=== PATIENT | female | born 1945 | race Caucasian/White ===

== ENCOUNTER → 2019-02-10 | Outpatient (CLI) | payer MEDICARE, BC ==
[2019-02-10 12:05] LABS: ABSOLUTE EOSINOPHILS 0.1 thou/uL (0.0-0.7); ABSOLUTE LYMPHOCYTES 1.5 thou/uL (0.8-5.3); ABSOLUTE MONOCYTES 0.8 thou/uL (0.0-1.2); ABSOLUTE NEUTROPHILS 3.1 thou/uL (1.6-8.1); BASOPHILS 0.6 %; EOSINOPHILS 1.3 %; HEMATOCRIT 28.6 % (37.0-47.0); HEMOGLOBIN 9.3 gm/dL (12.0-15.0); LYMPHOCYTES 26.9 %; MCH 29.2 pg (26.0-34.0); MCHC 32.5 g/dL (28.0-37.0); MCV 89.8 fL (80.0-100.0); MPV 7.7 fl. (7.2-11.1); NUCLEATED RBCS 0 /100WBC; PLATELET COUNT* 182 thou/uL (150-400); POLYS 56.2 %; RBC 3.18 mil/uL (4.20-5.00); RDW-CV 20.3 % (10.5-14.5); WBC 5.5 thou/uL (4.0-11.0)
[2019-02-10 12:19] LABS: ALBUMIN 2.4 g/dL (3.4-5.0); CALCIUM 8.3 mg/dL (8.5-10.1); CREATININE 0.7 mg/dL (0.6-1.3); POTASSIUM 3.4 mmol/L (3.5-5.1); TOTAL BILIRUBIN 0.2 mg/dL (<0.1-1.0); TOTAL PROTEIN 6.8 g/dL (6.4-8.2)
== END ==
LOC: M.LAB 10:12
PROVIDERS: Specialist
DX: K50.80 Crohn's disease of both small and large intestine without complications (principal)

== ENCOUNTER → 2019-02-10 | Outpatient (CLI) | payer MEDICARE, BC | LOC: M.WC 10:00 | DX: L59.8 Other specified disorders of the skin and subcutaneous tissue related to radiation (principal); E11.622 Type 2 diabetes mellitus with other skin ulcer; L98.491 Non-pressure chronic ulcer of skin of other sites limited to breakdown of skin; N76.6 Ulceration of vulva; C51.9 Malignant neoplasm of vulva, unspecified; I89.0 Lymphedema, not elsewhere classified; E78.00 Pure hypercholesterolemia, unspecified; K50.90 Crohn's disease, unspecified, without complications; M06.9 Rheumatoid arthritis, unspecified; F32.9 Major depressive disorder, single episode, unspecified; F41.9 Anxiety disorder, unspecified; Z90.710 Acquired absence of both cervix and uterus; Y84.2 Radiological procedure and radiotherapy as the cause of abnormal reaction of the patient, or of later complication, without mention of misadventure at the time of the procedure ==

== ENCOUNTER → 2019-02-17 | Outpatient (CLI) | payer MEDICARE, BC | LOC: M.WC 04:48 | DX: E11.622 Type 2 diabetes mellitus with other skin ulcer (principal); L98.491 Non-pressure chronic ulcer of skin of other sites limited to breakdown of skin; L59.8 Other specified disorders of the skin and subcutaneous tissue related to radiation; C51.9 Malignant neoplasm of vulva, unspecified; N76.6 Ulceration of vulva; I89.0 Lymphedema, not elsewhere classified; K50.90 Crohn's disease, unspecified, without complications; E78.00 Pure hypercholesterolemia, unspecified; M06.9 Rheumatoid arthritis, unspecified; F32.9 Major depressive disorder, single episode, unspecified; F41.9 Anxiety disorder, unspecified; Z90.710 Acquired absence of both cervix and uterus; Y83.8 Other surgical procedures as the cause of abnormal reaction of the patient, or of later complication, without mention of misadventure at the time of the procedure ==

== ENCOUNTER → 2019-03-06 | Outpatient (CLI) | payer MEDICARE, BC ==
[~2019-03-06] MED LIST: ACTOS 30 MG TAB30 M1 PO; ALPRAZOLAM 0.50.5 M1 PO; AMITRIPTYLINE H25 M4 PO; CIPRO500 M1 PO; COLESTID1 GM PO; CYMBALTA60 MG PO; FOLIC ACID1 MG PO; FORTAMET500 MG PO; JANUVIA100 MG PO; LIALDA1.2 GM PO; LIDOCAINE HCL85 GM TOP; LIDODERM1 EACH TOP; LIPITOR 40 MG T40 M1 PO; LOPERAMIDE 2 MG2 M1 PO; METRONIDAZOLE500 M4 PO; NORCO 5-325 TA1 EAC1 PO; SSD CREAM 1% 5050 GM TOP; VITAMIN B-121000 MC2 PO; VITAMIN D22000 UNIT PO; VITAMIN D32000 UNI2 PO; XANAX 0.5 MG0.5 M1 PO
== END ==
LOC: M.WC 07:00
DX: E11.622 Type 2 diabetes mellitus with other skin ulcer (principal); L98.491 Non-pressure chronic ulcer of skin of other sites limited to breakdown of skin; N76.6 Ulceration of vulva; L59.8 Other specified disorders of the skin and subcutaneous tissue related to radiation; C51.9 Malignant neoplasm of vulva, unspecified; E78.00 Pure hypercholesterolemia, unspecified; I89.0 Lymphedema, not elsewhere classified; K50.90 Crohn's disease, unspecified, without complications; M06.9 Rheumatoid arthritis, unspecified; F32.9 Major depressive disorder, single episode, unspecified; Z85.44 Personal history of malignant neoplasm of other female genital organs; Y84.2 Radiological procedure and radiotherapy as the cause of abnormal reaction of the patient, or of later complication, without mention of misadventure at the time of the procedure

== ENCOUNTER → 2019-03-15 | Outpatient (CLI) | payer MEDICARE, BC | LOC: M.WC 05:08 | DX: E11.622 Type 2 diabetes mellitus with other skin ulcer (principal); L98.491 Non-pressure chronic ulcer of skin of other sites limited to breakdown of skin; N76.6 Ulceration of vulva; L59.8 Other specified disorders of the skin and subcutaneous tissue related to radiation; C51.9 Malignant neoplasm of vulva, unspecified; E78.00 Pure hypercholesterolemia, unspecified; I89.0 Lymphedema, not elsewhere classified; K50.90 Crohn's disease, unspecified, without complications; M06.9 Rheumatoid arthritis, unspecified; F32.9 Major depressive disorder, single episode, unspecified; Z85.89 Personal history of malignant neoplasm of other organs and systems; Y84.2 Radiological procedure and radiotherapy as the cause of abnormal reaction of the patient, or of later complication, without mention of misadventure at the time of the procedure; F41.9 Anxiety disorder, unspecified ==

== ENCOUNTER → 2019-03-23 | Outpatient (CLI) | payer MEDICARE, BC | LOC: M.WC 09:19 | DX: L59.8 Other specified disorders of the skin and subcutaneous tissue related to radiation (principal); E11.622 Type 2 diabetes mellitus with other skin ulcer; N76.6 Ulceration of vulva; L98.491 Non-pressure chronic ulcer of skin of other sites limited to breakdown of skin; I89.0 Lymphedema, not elsewhere classified; C51.9 Malignant neoplasm of vulva, unspecified; E78.00 Pure hypercholesterolemia, unspecified; K50.90 Crohn's disease, unspecified, without complications; M06.9 Rheumatoid arthritis, unspecified; F32.9 Major depressive disorder, single episode, unspecified; Y84.2 Radiological procedure and radiotherapy as the cause of abnormal reaction of the patient, or of later complication, without mention of misadventure at the time of the procedure ==

== ENCOUNTER → 2019-03-30 | Outpatient (CLI) | payer MEDICARE, BC | LOC: M.WC 04:34 | DX: L59.8 Other specified disorders of the skin and subcutaneous tissue related to radiation (principal); E11.622 Type 2 diabetes mellitus with other skin ulcer; L98.491 Non-pressure chronic ulcer of skin of other sites limited to breakdown of skin; N76.6 Ulceration of vulva; C51.9 Malignant neoplasm of vulva, unspecified; E78.00 Pure hypercholesterolemia, unspecified; I89.0 Lymphedema, not elsewhere classified; N77.1 Vaginitis, vulvitis and vulvovaginitis in diseases classified elsewhere; K50.90 Crohn's disease, unspecified, without complications; M06.9 Rheumatoid arthritis, unspecified; F32.9 Major depressive disorder, single episode, unspecified; F41.9 Anxiety disorder, unspecified; Y84.2 Radiological procedure and radiotherapy as the cause of abnormal reaction of the patient, or of later complication, without mention of misadventure at the time of the procedure ==

== ENCOUNTER → 2019-04-03 | Outpatient (CLI) | payer MEDICARE, BC ==
[~2019-04-03] MED LIST changes: -ACTOS 30 MG TAB30 M1 PO; -ALPRAZOLAM 0.50.5 M1 PO; -CIPRO500 M1 PO; -COLESTID1 GM PO; -LIALDA1.2 GM PO; -LIDOCAINE HCL85 GM TOP; -METRONIDAZOLE500 M4 PO; -SSD CREAM 1% 5050 GM TOP
[2019-04-03 12:04] LABS: ABSOLUTE MONOCYTES 0.2 thou/uL (0.0-1.2); ABSOLUTE NEUTROPHILS 4.7 thou/uL (1.6-8.1); BASOPHILS 0.3 %; EOSINOPHILS 0.2 %; HEMATOCRIT 27.1 % (37.0-47.0); HEMOGLOBIN 8.9 gm/dL (12.0-15.0); LYMPHOCYTES 16.7 %; MCHC 32.7 g/dL (28.0-37.0); MCV 88.6 fL (80.0-100.0); MONOCYTES 3.6 %; MPV 7.8 fl. (7.2-11.1); NUCLEATED RBCS 0 /100WBC; PLATELET COUNT* 165 thou/uL (150-400); POLYS 79.2 %; RBC 3.06 mil/uL (4.20-5.00); RDW-CV 21.1 % (10.5-14.5); WBC 5.9 thou/uL (4.0-11.0)
[2019-04-03 12:41] LABS: PLATELET ESTIMATE ADEQUATE
[2019-04-03 12:42] LABS: ANISOCYTOSIS 1+; HYPOCHROMASIA 1+; POIKILOCYTOSIS 1+; POLYCHROMASIA 1+
[2019-04-05 15:09] LABS: GLIADIN IGA AB 29 units (0-19)
== END ==
LOC: M.LAB 11:31
PROVIDERS: Specialist
DX: R19.7 Diarrhea, unspecified (principal)

== ENCOUNTER 2019-04-13 11:24 | Inpatient (IN) | payer MEDICARE, BC ==
[~2019-04-13] VITALS: Ht 152.4 cm; Wt 60.6 kg
--- NOTE | ~2019-04-13 | PROC ---
[address] [address] PROCEDURE REPORT Name: MARÍA CASTILLO Room: [address] IN M.R.#: [id number] Admission: 04/13/19 Attend Phys: Maday Torrez Discharge: Date of : 45 Report #: [id number] THIS REPORT FOR: //name// cc: Nestor Contreras Bruce R. DO ~ THIS REPORT FOR: //name// For GI report, please see the Provation report in Perceptive 7 content. By: [id number] Records Staff [facility] /VISHNU
--- NOTE | ~2019-04-13 | PROC ---
[facility] [address] [place] [address] PROCEDURE REPORT Name: MARÍA CSATILLO Room: [address] ADM IN M.R.#: [id number] Admission: 04/13/19 Attend Phys: Maday Torrez Discharge: Date of : 45 Report #: [id number] THIS REPORT FOR: //name// cc: Nestor Contreras Bruce R. DO ~ THIS REPORT FOR: //name// For GI report, please see Provation report in Perceptive 7 content. By: [id number] Records Staff [facility] /VISHNU
[2019-04-13 11:30] VITALS: BP 106/40
[2019-04-13 12:00] LABS: ABSOLUTE LYMPHOCYTES 0.8 thou/uL (0.8-5.3); ABSOLUTE MONOCYTES 0.2 thou/uL (0.0-1.2); ABSOLUTE NEUTROPHILS 3.7 thou/uL (1.6-8.1); BASOPHILS 0.3 %; EOSINOPHILS 0.1 %; HEMATOCRIT 21.5 % (37.0-47.0); LYMPHOCYTES 17.6 %; MCH 27.7 pg (26.0-34.0); MCHC 31.9 g/dL (28.0-37.0); MCV 86.8 fL (80.0-100.0); MPV 8.5 fl. (7.2-11.1); NUCLEATED RBCS 0 /100WBC; PLATELET COUNT* 145 thou/uL (150-400); RBC 2.48 mil/uL (4.20-5.00); RDW-CV 20.2 % (10.5-14.5); WBC 4.8 thou/uL (4.0-11.0)
[2019-04-13 12:04] LABS: HEMOGLOBIN 6.9 gm/dL (12.0-15.0)
[2019-04-13] MEDS ORDERED: XANAX 0.5 MG0.5 M1 PO (12:08)
[2019-04-13] MEDS ORDERED: LOPERAMIDE 2 MG2 M1 PO (12:09)
[2019-04-13 12:10] LABS: APTT 24.3 Seconds (25.0-31.3); PROTIME 10.7 Seconds (9.20-11.50)
[2019-04-13] MEDS ORDERED: FORTAMET500 MG PO (12:10)
[2019-04-13] MEDS ORDERED: JANUVIA100 MG PO (12:10)
[2019-04-13] MEDS ORDERED: LIPITOR 40 MG T40 M1 PO (12:11)
[2019-04-13] MEDS ORDERED: CYMBALTA60 MG PO (12:11)
[2019-04-13] MEDS ORDERED: NORCO 5-325 TA1 EAC1 PO (12:11)
[2019-04-13] MEDS ORDERED: FOLIC ACID1 MG PO (12:11)
[2019-04-13] MEDS ORDERED: AMITRIPTYLINE H25 M4 PO (12:12)
[2019-04-13] MEDS ORDERED: LIDODERM1 EACH TOP (12:12)
[2019-04-13] MEDS ORDERED: VITAMIN D22000 UNIT PO (12:13)
[2019-04-13] MEDS ORDERED: VITAMIN B-121000 MC2 PO (12:13)
[2019-04-13 12:20] LABS: CALCIUM 7.8 mg/dL (8.5-10.1); CREATININE 0.8 mg/dL (0.6-1.3); POTASSIUM 4.5 mmol/L (3.5-5.1)
[2019-04-13 12:25] LABS: ALBUMIN 2.5 g/dL (3.4-5.0); TOTAL BILIRUBIN 0.3 mg/dL (<0.1-1.0); TOTAL PROTEIN 6.9 g/dL (6.4-8.2)
[2019-04-13 12:31] LABS: ANISOCYTOSIS 1+; PLATELET ESTIMATE ADEQUATE
[2019-04-13 14:04] LABS: URINE BILIRUBIN NEGATIVE (Negative); URINE BLOOD NEGATIVE (Negative); URINE CLARITY CLEAR; URINE COLOR YELLOW; URINE GLUCOSE-RANDOM 2+ (Negative); URINE KETONES NEGATIVE (Negative); URINE LEUKOCYTES-REFLEX NEGATIVE (Negative); URINE NITRITE-REFLEX NEGATIVE (Negative); URINE PROTEIN NEGATIVE (Negative); URINE UROBILINOGEN 0.2 E.U./dl (0.2-1.0)
[2019-04-13 16:53] VITALS: BP 134/52
[2019-04-13 20:10] VITALS: BP 141/59
[2019-04-13] MEDS ORDERED: VITAMIN D32000 UNI2 PO (20:17)
[2019-04-13 22:50] VITALS: BP 117/51; BP 119/50; BP 137/60; BP 139/62
[2019-04-14 00:15] VITALS: BP 119/50
[2019-04-14 04:00] VITALS: BP 140/61
[2019-04-14 04:05] LABS: HEMATOCRIT 23.1 % (37.0-47.0); HEMOGLOBIN 7.6 gm/dL (12.0-15.0); MCH 28.5 pg (26.0-34.0); MCHC 33.1 g/dL (28.0-37.0); MCV 86.3 fL (80.0-100.0); MPV 8.3 fl. (7.2-11.1); RBC 2.67 mil/uL (4.20-5.00); RDW-CV 19.1 % (10.5-14.5); WBC 6.4 thou/uL (4.0-11.0)
[2019-04-14 04:15] LABS: CALCIUM 7.3 mg/dL (8.5-10.1); CREATININE 0.8 mg/dL (0.6-1.3); MAGNESIUM 1.7 mg/dL (1.8-2.4); POTASSIUM 3.7 mmol/L (3.5-5.1)
[2019-04-14] MEDS ORDERED: JANUVIA100 MG PO (04:47)
[2019-04-14] MEDS ORDERED: ACTOS 30 MG TAB30 M1 PO (04:48)
[2019-04-14] MEDS ORDERED: LIALDA1.2 GM PO (04:50)
[2019-04-14] MEDS ORDERED: FOLIC ACID1 MG PO (04:54)
[2019-04-14] MEDS ORDERED: SSD CREAM 1% 5050 GM TOP (04:58)
[2019-04-14] MEDS ORDERED: LIDOCAINE HCL85 GM TOP (04:58)
[2019-04-14] MEDS ORDERED: COLESTID1 GM PO (05:01)
[2019-04-14] MEDS ORDERED: ALPRAZOLAM 0.50.5 M1 PO (05:02)
[2019-04-14 08:00] VITALS: BP 120/51
[2019-04-14 11:49] VITALS: BP 110/49
[2019-04-14 20:00] VITALS: BP 143/55
[2019-04-15] VITALS: BP 126/56
[2019-04-15 03:58] VITALS: BP 127/63
[2019-04-15 04:44] LABS: HEMATOCRIT 22.5 % (37.0-47.0); HEMOGLOBIN 7.3 gm/dL (12.0-15.0)
[2019-04-15 08:00] VITALS: BP 131/58
[2019-04-15 12:49] VITALS: BP 150/56
[2019-04-15 15:31] LABS: URINE BILIRUBIN NEGATIVE (Negative); URINE BLOOD 1+ (Negative); URINE CLARITY CLEAR; URINE COLOR YELLOW; URINE GLUCOSE-RANDOM NEGATIVE (Negative); URINE KETONES 1+ (Negative); URINE LEUKOCYTES-REFLEX NEGATIVE (Negative); URINE NITRITE-REFLEX NEGATIVE (Negative); URINE PROTEIN NEGATIVE (Negative); URINE UROBILINOGEN 0.2 E.U./dl (0.2-1.0)
[2019-04-15 15:39] LABS: CRYSTALS None Seen /LPF (None Seen); HYALINE CASTS 0-3 Few /LPF (None Seen); MUCUS None Seen strn/LPF (None Seen); SQUAMOUS 4-10 Moderate /LPF (0-3); URINE RBC 0-2 Rare /HPF (0-2); URINE WBC-REFLEX 0-5 Rare /HPF (0-5)
[2019-04-15 16:05] VITALS: BP 120/52
[2019-04-15 20:00] VITALS: BP 116/55
[2019-04-16] VITALS: BP 121/59
[2019-04-16 04:01] VITALS: BP 108/51
[2019-04-16 04:51] LABS: HEMATOCRIT 21.4 % (37.0-47.0); HEMOGLOBIN 7.1 gm/dL (12.0-15.0); MCH 27.9 pg (26.0-34.0); MCV 84.6 fL (80.0-100.0); MPV 7.8 fl. (7.2-11.1); RBC 2.53 mil/uL (4.20-5.00); RDW-CV 20.1 % (10.5-14.5); WBC 9.1 thou/uL (4.0-11.0)
[2019-04-16 05:24] LABS: ALBUMIN 2.1 g/dL (3.4-5.0); CALCIUM 6.8 mg/dL (8.5-10.1); CREATININE 0.7 mg/dL (0.6-1.3); POTASSIUM 3.3 mmol/L (3.5-5.1); TOTAL BILIRUBIN 0.4 mg/dL (<0.1-1.0); TOTAL PROTEIN 6.3 g/dL (6.4-8.2)
[2019-04-16 08:00] VITALS: BP 141/65
[2019-04-16 11:47] VITALS: BP 108/54
[2019-04-16 15:53] VITALS: BP 107/56
[2019-04-16 20:00] VITALS: BP 117/65
[2019-04-17] VITALS (8 sets, daily range): BP systolic 99–179; BP diastolic 47–81
[2019-04-17 06:03] LABS: HEMATOCRIT 26.3 % (37.0-47.0); HEMOGLOBIN 8.6 gm/dL (12.0-15.0); MCH 27.6 pg (26.0-34.0); MCHC 32.7 g/dL (28.0-37.0); MCV 84.6 fL (80.0-100.0); RBC 3.11 mil/uL (4.20-5.00); RDW-CV 20.7 % (10.5-14.5); WBC 10.7 thou/uL (4.0-11.0)
[2019-04-17 06:10] LABS: CREATININE 0.7 mg/dL (0.6-1.3); MAGNESIUM 1.9 mg/dL (1.8-2.4); POTASSIUM 4.3 mmol/L (3.5-5.1)
[2019-04-17 11:13] LABS: HEMATOCRIT 23.2 % (37.0-47.0); HEMOGLOBIN 7.5 gm/dL (12.0-15.0)
[2019-04-18 05:30] VITALS: BP 150/68
[2019-04-18 06:02] LABS: HEMATOCRIT 31.1 % (37.0-47.0); MCH 27.8 pg (26.0-34.0); MCHC 33.2 g/dL (28.0-37.0); MCV 83.7 fL (80.0-100.0); MPV 7.5 fl. (7.2-11.1); RBC 3.72 mil/uL (4.20-5.00); RDW-CV 18.7 % (10.5-14.5); WBC 10.2 thou/uL (4.0-11.0)
[2019-04-18 06:03] LABS: HEMOGLOBIN 10.3 gm/dL (12.0-15.0)
[2019-04-18 06:28] LABS: ALBUMIN 2.1 g/dL (3.4-5.0); CALCIUM 6.7 mg/dL (8.5-10.1); CREATININE 0.6 mg/dL (0.6-1.3); POTASSIUM 3.3 mmol/L (3.5-5.1); TOTAL BILIRUBIN 0.6 mg/dL (<0.1-1.0); TOTAL PROTEIN 6.9 g/dL (6.4-8.2)
[2019-04-18 08:20] VITALS: BP 141/85
--- NOTE | 2019-04-18 09:17 | CON ---
[address] [address] CONSULTATION Name: MARÍA CASTILLO Room: [address] IN M.R.#: [id number] Admission: 04/13/19 Attend Phys: Maday Torrez Discharge: Date of : 45 Report #: [id number] THIS REPORT FOR: //name// cc: Nestor Contreras Bruce R. DO ~ THIS REPORT FOR: //name// CC: Jayy Byrnes DATE OF SERVICE: 04/17/2019 REASON FOR CONSULTATION: Bleeding. 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 Most recent biopsy around a month ago came back negative for any active malignancy. However, she is receiving hyperbariatric oxygen. She was found to be very anemic. Her hemoglobin was 6.9. She received 1 unit of PRBC. However, she continues to have any active GI bleed. She underwent colonoscopy, which showed end-to-end ileocolonic anastomosis; however, there is friable with contact bleeding mucosa in the rectum, which was biopsied. Also, there were nonbleeding external and internal hemorrhoids. The patient was not sure if she is having any vaginal bleeding at this point. REVIEW OF SYSTEMS: All systems were reviewed. It was negative except the above. PAST MEDICAL HISTORY: Vaginal carcinoma treated with concurrent chemoradiation, diabetes mellitus, dyslipidemia, depression/anxiety, vitamin D deficiency, Crohn's disease. MEDICATIONS: Per admission list. ALLERGIES: CODEINE AND IBUPROFEN. FAMILY HISTORY: No family history of malignancy. SOCIAL HISTORY: No smoking, no alcohol abuse, no drug abuse. PHYSICAL EXAMINATION: VITAL SIGNS: Today, temperature is 36.7, pulse 97, respirations 20, blood pressure is 179/81, SpO2 was 96% on 2 liters. GENERAL: The patient was sitting in chair. She was not in acute distress. LUNGS: Clear to [place] [address] CONSULTATION Name: MARÍA CASTILLO Maru Room: [address] IN [facility].#: [id number] Admission: 04/13/19 Attend Phys: Maday Torrez Discharge: Date of : 45 Report #: [id number] HEART: Regular rate and rhythm. S1, S2 within normal limits. ABDOMEN: Soft, nontender, nondistended. EXTREMITIES: No edema, no cyanosis or clubbing. LABORATORY DATA: Today, WBC 10.7, hemoglobin today is 7.5, platelets 174. Sodium is 133, potassium is 4.1, creatinine 0.7, calcium 7.7. Serum iron low at 19. Saturation low at 5%, TIBC 353, bilirubin 0.4, AST is 33, ALT is 16. B12 is 969. IMAGING DATA: A CT abdomen without contrast showed minimal bilateral pleural effusion. There is also atelectasis in the lung base with gaseous distention of the colon. CT chest showed mild to moderate atelectasis involving both portion of the lungs with no superimposed acute chest process. 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 Most recently, she underwent a biopsy, which did not show any evidence of active malignancy. However, she has been having a significant bleed. The patient reports at this point it was more of rectal bleed, she continues to have in the last 24 hours. RECOMMENDATIONS: We will transfuse 2 units of PRBC. I would like to also initiate intravenous iron to support her hemoglobin, however, if the bleed does not improve in the next 24 hours, we will consider aminocaproic acid; however, it will carry a thrombosis risk. I discussed the plan with the patient. Due to the complexity of the case, I do recommend the patient to be transferred to [facility] to be evaluated by Dr. Hope to make sure there is no vaginal bleeding at this point. <ELECTRONICALLY SIGNED> By: Fior Xavier MD 04/18/19 0917 1257 1322Fior Xavier MD /nt
[2019-04-18] MEDS ORDERED: CIPRO500 M1 PO (12:11)
[2019-04-18] MEDS ORDERED: METRONIDAZOLE500 M4 PO (12:13)
[2019-04-18 16:28] VITALS: BP 138/72
[2019-04-18 19:25] VITALS: BP 147/60
[2019-04-19 00:27] VITALS: BP 129/61
[2019-04-19 03:43] LABS: HEMATOCRIT 28.4 % (37.0-47.0); HEMOGLOBIN 9.5 gm/dL (12.0-15.0); MCH 27.8 pg (26.0-34.0); MCHC 33.5 g/dL (28.0-37.0); MCV 82.8 fL (80.0-100.0); MPV 7.2 fl. (7.2-11.1); RBC 3.43 mil/uL (4.20-5.00); RDW-CV 19.2 % (10.5-14.5); WBC 8.3 thou/uL (4.0-11.0)
[2019-04-19 04:08] LABS: CALCIUM 6.7 mg/dL (8.5-10.1); CREATININE 0.5 mg/dL (0.6-1.3); MAGNESIUM 1.7 mg/dL (1.8-2.4)
[2019-04-19 04:36] VITALS: BP 144/69
[2019-04-19 08:02] VITALS: BP 151/75
--- NOTE | 2019-04-19 10:08 | PATH ---
[address] [address] PATHOLOGY RPT PROCEDURE Name: CELESTINO CASTILLOMERRICK Mahoney Room: [address] IN M.R.#: [id number] Admission: 04/13/19 Date of : 45 Discharge: Report #: [id number] Path Case #: [id number] [facility] Accession Number: [id number] . 01 Material submitted: . rectum - RECTAL BIOPSIES . 01 Clinical history: . None provided . 02 Diagnosis: Rectal biopsies: - Mild active colitis with suggestion of chronic inflammation, negative for granulomas, viral inclusions and dysplasia. See comment. [facility] 04/18/2019 1300 Local . 02 Comment: The biopsies reveal benign colonic mucosa with mild active inflammation evidenced by a few neutrophils scattered in the lamina propria in association with disarray of crypts including focal crypt dropout and minimal basal lymphoplasmacytosis which raises a concern for chronic inflammation. The mucosa also has a suggestion of hyperplastic changes. The findings could be seen in diverticular disease, however, inflammatory bowel disease should be considered in the clinical differential. (MAYELIN/db; 04/18/2019) . 02 Electronically signed: . Agustin Weston MD, Pathologist NPI- [id number] . 01 Gross description: . The specimen is received in formalin, labeled "FedericoremediosCelestino rodaseda, rectal biopsies for proctitis" and consists of multiple fragments of pink-viveros tissue measuring 1.2 x 0.6 x 0.2 cm in aggregate which are entirely submitted in A1. (SDY; 04/17/2019) SYU/SYU 04/17/2019 1755 Local . 02 Pathologist provided ICD-10: K52.9 . 02 CPT . 028971 Specimen Comment: A courtesy copy of this report has been sent to [phone] Specimen Comment: 1181, Specimen Comment: Report sent to ,DR ASHRAF / DR HERNANDEZ Specimen Comment: A duplicate report has been [place] [address] PATHOLOGY RPT PROCEDURE Name: MARÍA CASTILLO Maru Room: [address] IN M.R.#: [id number] Admission: 04/13/19 Date of : 45 Discharge: Report #: [id number] Path Case #: [id number] updates. Performed at: 01 [facility] [address], [place], [place] [id number] MD Vic Juan MD Phone: [phone] Performed at: 02 [facility] Jennifer Carrington, [place], [place] [id number] MD Agustin Weston MD Phone: [phone]
[2019-04-19 12:27] VITALS: BP 160/82
[2019-04-19 17:47] LABS: MAGNESIUM 1.9 mg/dL (1.8-2.4)
[2019-04-19 17:59] VITALS: BP 182/66
[2019-04-19 20:00] VITALS: BP 138/80
[2019-04-20] VITALS (7 sets, daily range): BP systolic 131–167; BP diastolic 66–82
[2019-04-20 05:07] LABS: WBC 8.3 thou/uL (4.0-11.0)
[2019-04-20 05:08] LABS: HEMOGLOBIN 9.7 gm/dL (12.0-15.0); MCH 28.1 pg (26.0-34.0); MCHC 33.5 g/dL (28.0-37.0); MPV 7.3 fl. (7.2-11.1); RBC 3.45 mil/uL (4.20-5.00); RDW-CV 19.4 % (10.5-14.5)
[2019-04-20 05:28] LABS: CALCIUM 6.9 mg/dL (8.5-10.1); CREATININE 0.5 mg/dL (0.6-1.3); MAGNESIUM 1.7 mg/dL (1.8-2.4); POTASSIUM 3.7 mmol/L (3.5-5.1)
[2019-04-20 13:43] LABS: ABSOLUTE LYMPHOCYTES 0.6 thou/uL (0.8-5.3); ABSOLUTE MONOCYTES 0.2 thou/uL (0.0-1.2); ABSOLUTE NEUTROPHILS 8.2 thou/uL (1.6-8.1); BASOPHILS 0.4 %; HEMATOCRIT 32.9 % (37.0-47.0); MCH 27.9 pg (26.0-34.0); MCHC 33.4 g/dL (28.0-37.0); MCV 83.4 fL (80.0-100.0); MONOCYTES 2.4 %; MPV 7.7 fl. (7.2-11.1); NUCLEATED RBCS 1 /100WBC; PLATELET COUNT* 156 thou/uL (150-400); POLYS 90.2 %; RBC 3.94 mil/uL (4.20-5.00); RDW-CV 19.9 % (10.5-14.5); WBC 9.1 thou/uL (4.0-11.0)
[2019-04-20 13:54] LABS: INR 1.2; PROTIME 12.1 Seconds (9.20-11.50)
[2019-04-21 05:00] VITALS: BP 115/63
[2019-04-21 06:45] LABS: HEMATOCRIT 26.3 % (37.0-47.0); MCH 28.2 pg (26.0-34.0); MCHC 33.1 g/dL (28.0-37.0); MPV 7.7 fl. (7.2-11.1); RBC 3.09 mil/uL (4.20-5.00); RDW-CV 19.8 % (10.5-14.5); WBC 6.9 thou/uL (4.0-11.0)
[2019-04-21 06:52] LABS: HEMOGLOBIN 8.7 gm/dL (12.0-15.0)
[2019-04-21 06:53] LABS: CALCIUM 7.1 mg/dL (8.5-10.1); CREATININE 0.6 mg/dL (0.6-1.3); MAGNESIUM 1.8 mg/dL (1.8-2.4); POTASSIUM 3.2 mmol/L (3.5-5.1)
[2019-04-21 08:00] VITALS: BP 113/73
[2019-04-21 15:13] VITALS: BP 113/73
[2019-04-21 20:00] VITALS: BP 119/57
[2019-04-21 23:58] VITALS: BP 119/53
[2019-04-22 07:00] LABS: HEMATOCRIT 26.9 % (37.0-47.0); HEMOGLOBIN 8.9 gm/dL (12.0-15.0); MCH 28.5 pg (26.0-34.0); MCHC 32.9 g/dL (28.0-37.0); MCV 86.7 fL (80.0-100.0); RBC 3.11 mil/uL (4.20-5.00); RDW-CV 20.1 % (10.5-14.5); WBC 8.5 thou/uL (4.0-11.0)
[2019-04-22 07:07] LABS: CALCIUM 7.6 mg/dL (8.5-10.1); CREATININE 0.6 mg/dL (0.6-1.3); MAGNESIUM 1.5 mg/dL (1.8-2.4); POTASSIUM 3.2 mmol/L (3.5-5.1)
[2019-04-22 10:42] VITALS: BP 142/73
[2019-04-22 12:51] VITALS: BP 161/79
[2019-04-22 17:12] VITALS: BP 143/72
[2019-04-22 20:00] VITALS: BP 140/63
[2019-04-22 23:34] VITALS: BP 132/74
[2019-04-23 09:00] VITALS: BP 154/97
[2019-04-23 15:02] VITALS: BP 118/61
[2019-04-23 17:00] VITALS: BP 107/50
[2019-04-23 20:00] VITALS: BP 135/62
[2019-04-24 00:56] VITALS: BP 137/52
[2019-04-24 04:00] VITALS: BP 130/60
[2019-04-24 08:30] VITALS: BP 120/66
[2019-04-24 15:55] VITALS: BP 123/69
[2019-04-24 20:40] VITALS: BP 140/69
[2019-04-25 04:04] LABS: HEMATOCRIT 30.4 % (37.0-47.0); HEMOGLOBIN 9.9 gm/dL (12.0-15.0)
[2019-04-25 07:54] VITALS: BP 138/70
[2019-04-25 16:00] VITALS: BP 168/62
[2019-04-25 19:44] VITALS: BP 120/58
[2019-04-26 07:47] VITALS: BP 130/71
[2019-04-26 13:25] LABS: HEMATOCRIT 30.5 % (37.0-47.0); MCH 28.7 pg (26.0-34.0); MCHC 32.9 g/dL (28.0-37.0); MCV 87.2 fL (80.0-100.0); MPV 7.6 fl. (7.2-11.1); RBC 3.5 mil/uL (4.20-5.00); RDW-CV 23.1 % (10.5-14.5); WBC 13.9 thou/uL (4.0-11.0)
[2019-04-26 13:33] LABS: CALCIUM 7.6 mg/dL (8.5-10.1); CREATININE 0.7 mg/dL (0.6-1.3); MAGNESIUM 1.4 mg/dL (1.8-2.4); POTASSIUM 3.8 mmol/L (3.5-5.1)
[2019-04-26 16:00] VITALS: BP 138/62
[2019-04-26 20:47] VITALS: BP 113/64
[2019-04-27 05:03] LABS: HEMATOCRIT 32.6 % (37.0-47.0); HEMOGLOBIN 10.7 gm/dL (12.0-15.0); MCH 28.5 pg (26.0-34.0); MCHC 32.7 g/dL (28.0-37.0); MCV 87.2 fL (80.0-100.0); MPV 7.8 fl. (7.2-11.1); RBC 3.75 mil/uL (4.20-5.00); RDW-CV 23.7 % (10.5-14.5); WBC 11.4 thou/uL (4.0-11.0)
[2019-04-27 05:32] LABS: CALCIUM 8.3 mg/dL (8.5-10.1); CREATININE 0.7 mg/dL (0.6-1.3); MAGNESIUM 1.7 mg/dL (1.8-2.4); POTASSIUM 3.9 mmol/L (3.5-5.1)
[2019-04-27 20:58] VITALS: BP 144/74
[2019-04-28 08:40] VITALS: BP 121/71
--- NOTE | 2019-04-28 14:54 | EKG ---
[place] [address] ELECTROCARDIOGRAM REPORT Name: MARÍA CASTILLO Room: [address] ADM IN .R.#: [id number] Admission: 04/13/19 Attend Phys: Bridgette Byrnes Discharge: Date of : 45 Date of Service: 04/13/19 1137 Report #: [id number] THIS REPORT FOR: //name// [facility] ED Test Date: 2019-04-13 Test Time: 11:37:01 Pat Name: MARÍA CASTILLO Department: Room: [facility] Gender: F [employer]: : 1945 Requested By: Alfredo Smith Order Number: [id number] MD: Yimi Quiñones Measurements Intervals Morris Rate: 92 P: 52 [place]: 139 QRS: -7 QRSD: 82 T: 53 QT: 377 QTc: 467 Interpretive Statements Sinus rhythm Low voltage, precordial leads No previous ECG available for comparison Electronically Signed On 04-13-2019 14:25:13 [employer] by Yimi Quiñones [email or web address] <ELECTRONICALLY SIGNED> By: Yimi Quiñones MD, FACC 04/13/19 1425 1137 1137 Yimi Quiñones MD, [facility] /EPI
[2019-04-28 16:30] VITALS: BP 108/55
[2019-04-28 21:07] VITALS: BP 120/63
[2019-04-29 01:50] LABS: HEMATOCRIT 31.7 % (37.0-47.0); HEMOGLOBIN 10.5 gm/dL (12.0-15.0); MCH 28.2 pg (26.0-34.0); MCHC 33.2 g/dL (28.0-37.0); MCV 84.8 fL (80.0-100.0); MPV 7.4 fl. (7.2-11.1); NUCLEATED RBCS 0 /100WBC; PLATELET COUNT* 155 thou/uL (150-400); RBC 3.74 mil/uL (4.20-5.00); RDW-CV 22.3 % (10.5-14.5)
[2019-04-29 02:02] LABS: CALCIUM 8.3 mg/dL (8.5-10.1); CREATININE 0.7 mg/dL (0.6-1.3); POTASSIUM 4.3 mmol/L (3.5-5.1)
[2019-04-29 02:04] LABS: APTT 29.6 Seconds (25.0-31.3); INR 1.2; PROTIME 11.8 Seconds (9.20-11.50)
[2019-04-29 02:06] LABS: ALBUMIN 1.8 g/dL (3.4-5.0); MAGNESIUM 1.4 mg/dL (1.8-2.4); PHOSPHORUS* 1.3 mg/dL (2.5-4.9); TOTAL BILIRUBIN 0.5 mg/dL (<0.1-1.0); TOTAL PROTEIN 8.1 g/dL (6.4-8.2)
[2019-04-29 02:46] LABS: ABSOLUTE LYMPHOCYTES 0.8 thou/uL (0.8-5.3); ABSOLUTE MONOCYTES 0.1 thou/uL (0.0-1.2); PLATELET ESTIMATE ADEQUATE; TOXIC GRANULATION 1+
[2019-04-29 03:00] VITALS: BP 146/70
[2019-04-29 05:25] LABS: URINE BILIRUBIN NEGATIVE (Negative); URINE BLOOD TRACE (Negative); URINE CLARITY CLEAR; URINE COLOR YELLOW; URINE GLUCOSE-RANDOM NEGATIVE (Negative); URINE KETONES TRACE (Negative); URINE LEUKOCYTES-REFLEX NEGATIVE (Negative); URINE NITRITE-REFLEX NEGATIVE (Negative); URINE PROTEIN 2+ (Negative); URINE UROBILINOGEN 0.2 E.U./dl (0.2-1.0)
[2019-04-29 05:48] LABS: SQUAMOUS 0-3 Few /LPF (0-3)
[2019-04-29 05:49] LABS: BACTERIA-REFLEX 1-9 Few /HPF (None Seen); CRYSTALS None Seen /LPF (None Seen); HYALINE CASTS 0-3 Few /LPF (None Seen); MUCUS 4-6 Moderate strn/LPF (None Seen); URINE RBC 3-10 Few /HPF (0-2); URINE WBC-REFLEX None Seen /HPF (0-5)
[2019-04-29 08:00] VITALS: BP 161/89
[2019-04-29 10:00] VITALS: BP 159/82
[2019-04-29 12:00] VITALS: BP 148/77
[2019-04-29 18:54] LABS: HEMATOCRIT 30.4 % (37.0-47.0); HEMOGLOBIN 10.4 gm/dL (12.0-15.0)
[2019-04-29 23:17] LABS: BE 2.5 mmol/L (-2 to +3); PCO2 VENOUS 38.9 mmHg (41.0-51.0); PO2 VENOUS 35.7 mmHg (35.0-45.0)
[2019-04-29 23:30] LABS: CALCIUM 8.1 mg/dL (8.5-10.1); CREATININE 0.8 mg/dL (0.6-1.3); MAGNESIUM 2.7 mg/dL (1.8-2.4); PHOSPHORUS* 2.5 mg/dL (2.5-4.9)
[2019-04-30] VITALS: BP 164/71
[2019-04-30 04:00] VITALS: BP 131/70
[2019-04-30 12:12] VITALS: BP 132/66
[2019-04-30 16:03] VITALS: BP 153/79
[2019-04-30 20:00] VITALS: BP 132/65
[2019-04-30 21:24] LABS: BE 0.3 mmol/L (-2 to +3); PCO2 VENOUS 30.6 mmHg (41.0-51.0); PO2 VENOUS 144.9 mmHg (35.0-45.0)
[2019-04-30 21:38] LABS: ALBUMIN 1.4 g/dL (3.4-5.0); CALCIUM 7.4 mg/dL (8.5-10.1); CREATININE 0.7 mg/dL (0.6-1.3); MAGNESIUM 1.8 mg/dL (1.8-2.4); PHOSPHORUS* 1.7 mg/dL (2.5-4.9); POTASSIUM 3.4 mmol/L (3.5-5.1); TOTAL BILIRUBIN 0.3 mg/dL (<0.1-1.0); TOTAL PROTEIN 6.8 g/dL (6.4-8.2)
[2019-05-01 00:36] VITALS: BP 125/64
[2019-05-01 04:24] VITALS: BP 131/64
[2019-05-01 12:12] VITALS: BP 145/66
[2019-05-01 16:20] VITALS: BP 164/72
[2019-05-01 20:00] VITALS: BP 143/62
[2019-05-02] VITALS: BP 161/83
[2019-05-02 03:53] VITALS: BP 155/74
[2019-05-02 05:33] LABS: % SATURATION 34 % (20-39); IRON 46 ug/dL (50-175)
[2019-05-02 07:30] VITALS: BP 155/77
[2019-05-02 09:25] LABS: MAGNESIUM 1.7 mg/dL (1.8-2.4); POTASSIUM 3.5 mmol/L (3.5-5.1)
[2019-05-02 12:45] VITALS: BP 148/58
--- NOTE | 2019-05-02 13:53 | CON ---
[address] [address] CONSULTATION Name: MARÍA CASTILLO Room: [address] IN M.R.#: [id number] Admission: 04/13/19 Attend Phys: Maday Torrez Discharge: Date of : 45 Report #: [id number] THIS REPORT FOR: //name// cc: Nestor Contreras Bruce R. DO ~ THIS REPORT FOR: //name// CC: Nestor Enciso DICTATED BY: Divya Collins [facility] DATE OF SERVICE: 04/14/2019 Please note at the time of this dictation, the patient was seen and physically examined by myself. REASON FOR CONSULTATION: Rectal bleeding. HISTORY OF PRESENT ILLNESS: This is a 73-year-old female who presented to the Emergency Room with rectal bleeding for the last 2 weeks. She states she has been having this bright red bloody stool. She states she did see Dr. Thurman of [facility] last Wednesday and blood work was ordered at that time. The patient continued to have increased bleeding. She states her normal bowel habits are 6-8 times a day and that had increased somewhat with the bright red bloody stools that she was having in conjunction with stools. The patient states that she had a colonoscopy with him back in 2018 and everything was completely normal, she was told and she had not seen him up until recently. When the patient saw the retail loss prevention officer last Wednesday, her hemoglobin was 8.9; however, as the week has progressed, she is having increased weakness and shortness of air. When she came to the Emergency Room, she was found to be 6.9. She got a unit of blood and she is up to 7.6 this morning that she has still had 2 bright red bloody stools this a.m. She did not have any yesterday, she states. The patient states she was diagnosed with Crohn's disease [address] Mares and at that time, she was placed on prednisone, tapered down and then she was maintained on 10 mg of prednisone. She also states that she underwent a bowel resection to remove that part of her bowel and she has done relatively well since that time. She also had issues with her arthritis and they had tried methotrexate on her along with 10 mg of prednisone. When she underwent a colonoscopy after she was diagnosed with vaginal cancer and when she underwent chemo and radiation is when she had the colonoscopy by Dr. Thurman which was completely normal at that time. ALLERGIES: CODEINE [place] [address] CONSULTATION Name: CELESTINO CASTILLOMERRICK Mahoney Room: [address] IN M.R.#: [id number] Admission: 04/13/19 Attend Phys: Maday Torrez Discharge: Date of : 45 Report #: [id number] MEDICATIONS: From home include vitamin D, B12, amitriptyline, Lidoderm, Cymbalta, [place], folic acid, Lipitor, Januvia, Fortamet, Imodium and Xanax. PAST MEDICAL HISTORY: Vaginal cancer in 2018; history of Crohn's disease 35 years ago, she had chemo and radiation for her vaginal cancer back in 2018; issues with anxiety; possible celiac. PAST SURGICAL HISTORY: She has had back surgery and a partial colectomy. FAMILY HISTORY: Negative for any GI or female cancers. SOCIAL HISTORY: Denies any alcohol, tobacco or illegal drug use. REVIEW OF SYSTEMS: Twelve-point review of systems is essentially negative except what is mentioned in the HPI. PHYSICAL EXAMINATION: VITAL SIGNS: Temperature 37.4, pulse 101, respirations 18, blood pressure 120/51. HEART: Regular rate and rhythm. LUNGS: Clear. ABDOMEN: Soft, positive bowel sounds in all 4 quadrants with no masses or tenderness noted. LABORATORY DATA: Hemoglobin on admission was 6.9, got a unit of blood, she is up to 7.6; white count is 6.4; platelets 145. GFR is 70. PT 10.7, INR is 1. LFTs: Total bilirubin 0.3, alk phos 193, ALT 25, AST is 36, B12 is 969. Iron is 19, TIBC is 372 and percentage sat is 5. CT of the abdomen and pelvis shows absent gallbladder and CPD normal dilatation post-cholecystectomy, mild wall thickening in the distal colon diffusely with moderate amount of stool noted, some dilatation in the proximal colon. IMPRESSION: 1. Rectal bleeding. 2. Acute anemia. 3. Abnormal CT showing diffuse mild wall thickening in the distal colon. 4. Questionable celiac disease. 5. History of Crohn's disease diagnosed 35 years ago and was on long-term steroids for this. 6. History of vaginal cancer, completed chemo and radiation in 2018. PLAN: 1. Colonoscopy tomorrow. 2. Obtain records from [facility]. 3. The patient is intolerable to a large volume preps, we will give her some mag citrate and Dulcolax and see how she does. [address] [address] CONSULTATION Name: MARÍA CASTILLO Room: [address] IN .R.#: [id number] Admission: 04/13/19 Attend Phys: Maday Torrez Discharge: Date of : 45 Report #: [id number] 4. Transfuse to keep her hemoglobin greater than 7. 5. Further recommendations to be made once Dr. Gross sees the patient later today and after her procedures. Thank you for allowing us to participate in this patient's care. Please do not hesitate to call with any questions in regard to this consult. <ELECTRONICALLY SIGNED> By: Jason Gross MD 05/02/19 1353 1111 1214Jason Gross MD /nt
--- NOTE | 2019-05-02 13:54 | CON ---
[address] [address] CONSULTATION Name: MARÍA CASTILLO Room: [address] IN M.R.#: [id number] Admission: 04/13/19 Attend Phys: Maday Torrez Discharge: Date of : 45 Report #: [id number] THIS REPORT FOR: //name// cc: Nestor Contreras Bruce R. DO THIS REPORT FOR: //name// CC: Nestor Byrnes DATE OF SERVICE: 04/29/2019 HISTORY OF PRESENT ILLNESS: This is a 73-year-old female who was just released from hospital to rehab and now is back to hospital again for abdominal distention and pain. The patient also appears to have electrolyte imbalance with hypomagnesemia and hyponatremia. PAST MEDICAL HISTORY: Significant for history of Crohn's disease, vaginal cancer, status post chemoradiation, partial colectomy with ileosigmoid anastomosis, recent rectal bleeding, dyslipidemia, vitamin D deficiency, depression, anxiety. ALLERGIES: SIGNIFICANT TO CODEINE AND IBUPROFEN. MEDICATIONS: Refer to MAR. SOCIAL HISTORY: The patient is . Has good family support. Denies tobacco or alcohol use. Was recently in the hospital and was discharged to rehab and now back to hospital. FAMILY HISTORY: Noncontributory. PHYSICAL EXAMINATION: VITAL SIGNS: Reveals blood pressure of 148/77, respiration 18, pulse 122, temperature 99.8. LUNGS: Clear with decreased breath sounds at the bases. CARDIOVASCULAR: Tachycardic, but normal rate, normal rhythm. ABDOMEN: Large, distended, diminished bowel sounds. NEUROLOGIC: The patient is alert and oriented, but slow to answer questions. LABORATORY DATA: Reveal sodium of 127, potassium 4.3, BUN is 23, creatinine 0.7, glucose is 168, total bilirubin 0.5, AST 29, ALT 24, alkaline phosphatase is 155. INR is 1.2. WBC is 12 with hemoglobin of 10.5 and platelets [place] 155[place] [address] CONSULTATION Name: ANNAMARÍA Mahoney Room: [address] IN ..#: [id number] Admission: 04/13/19 Attend Phys: Maday Torrez Discharge: Date of : 45 Report #: [id number] IMAGING: CTA of abdomen reveals gaseous distention of the small bowel with transition point at the proximal to the anastomotic site in sigmoid colon. No apparent inflammatory or pneumoperitoneal mass noted. KUB was obtained, which showed gaseous distention of the stomach and small bowel loops concerning for small-bowel obstruction. ASSESSMENT AND PLAN: The patient with small-bowel obstruction with gaseous distention of the small bowel and the stomach. We will put a NG tube down to intermittent suction and do a followup KUB tomorrow. The patient is agreeable with plan. Meanwhile, we will correct all electrolyte imbalances with replacing her sodium and magnesium. <ELECTRONICALLY SIGNED> By: Jason Gross MD 05/02/19 1354 1544 2136Jason Gross MD /nt
[2019-05-02 14:49] LABS: ABSOLUTE LYMPHOCYTES 0.5 thou/uL (0.8-5.3); ABSOLUTE MONOCYTES 0.2 thou/uL (0.0-1.2); ABSOLUTE NEUTROPHILS 7.2 thou/uL (1.6-8.1); BASOPHILS 0.1 %; HEMATOCRIT 27.7 % (37.0-47.0); HEMOGLOBIN 9.1 gm/dL (12.0-15.0); LYMPHOCYTES 5.9 %; MCH 28.1 pg (26.0-34.0); MCHC 32.9 g/dL (28.0-37.0); MCV 85.4 fL (80.0-100.0); MONOCYTES 2.5 %; MPV 7.3 fl. (7.2-11.1); NUCLEATED RBCS 0 /100WBC; PLATELET COUNT* 143 thou/uL (150-400); POLYS 91.5 %; RBC 3.25 mil/uL (4.20-5.00); RDW-CV 22.4 % (10.5-14.5); WBC 7.9 thou/uL (4.0-11.0)
[2019-05-02 15:07] LABS: ALBUMIN 1.7 g/dL (3.4-5.0); CALCIUM 7.5 mg/dL (8.5-10.1); CREATININE 0.7 mg/dL (0.6-1.3); TOTAL BILIRUBIN 0.3 mg/dL (<0.1-1.0); TOTAL PROTEIN 7.9 g/dL (6.4-8.2)
[2019-05-02 15:58] LABS: ESR (SEDRATE) 139 mm/hr (0-30)
[2019-05-02 17:56] VITALS: BP 165/79
[2019-05-02 20:00] VITALS: BP 159/68
[2019-05-03] VITALS: BP 126/75
[2019-05-03 03:45] VITALS: BP 139/69
[2019-05-03 08:30] VITALS: BP 156/86
[2019-05-03 08:53] LABS: HEMATOCRIT 28.7 % (37.0-47.0); HEMOGLOBIN 9.3 gm/dL (12.0-15.0); MCH 27.9 pg (26.0-34.0); MCHC 32.5 g/dL (28.0-37.0); MCV 85.8 fL (80.0-100.0); MPV 6.9 fl. (7.2-11.1); RBC 3.35 mil/uL (4.20-5.00); RDW-CV 22.6 % (10.5-14.5); WBC 9.9 thou/uL (4.0-11.0)
[2019-05-03 09:10] LABS: ALBUMIN 1.6 g/dL (3.4-5.0); CALCIUM 7.5 mg/dL (8.5-10.1); CREATININE 0.6 mg/dL (0.6-1.3); MAGNESIUM 1.7 mg/dL (1.8-2.4); TOTAL BILIRUBIN 0.3 mg/dL (<0.1-1.0); TOTAL PROTEIN 7.3 g/dL (6.4-8.2)
[2019-05-03 11:56] VITALS: BP 139/86
--- NOTE | 2019-05-03 13:19 | CON ---
[address] [address] CONSULTATION Name: MARÍA CASTILLO Room: [address] ADM IN M.R.#: [id number] Admission: 04/13/19 Attend Phys: Maday Torrez Discharge: Date of : 45 Report #: [id number] THIS REPORT FOR: //name// cc: Nestor Contreras Bruce R. DO ~ THIS REPORT FOR: //name// CC: Nestor Byrnes DATE OF SERVICE: 04/29/2019 CHIEF COMPLAINT: Followup of bilateral lower extremity pain, right worse. SUBJECTIVE: Venous duplex Doppler negative for DVT, bilateral. 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 There is subchondral sclerosis and hindfoot pain and swelling with concomitant hindfoot pain and swelling. The ankle joints are well maintained with no joint space narrowing or subluxation. No fractures or subluxations noted. She is on parenteral Zosyn with good tolerance. Chest x-ray shows decreased inspiration with mild increased basilar density suggesting atelectasis. LABORATORY DATA: WBC 12.0, RBC 3.74, hemoglobin 10.5, hematocrit 31.7, and platelets 155. BUN 23, creatinine 0.7, glucose 168, and albumin 1.8. PHYSICAL EXAMINATION: Unchanged since yesterday. No open lesions or signs of acute vascular embarrassment. She has strong pedal pulses to all 4 pedal vessels. She has pain with palpation to the right hindfoot overlying the subtalar joint and with extension of her ankles and raising of her legs. The pain radiates up her legs to the thigh and low back region. IMPRESSION: Right subtalar joint arthrosis with pain and right lower extremity inflammation of unknown etiology, cannot rule out cellulitis. PLAN: I discussed possible corticosteroid injection to the right ankle and subtalar joint, but I do not think it will be of much help for her. I spoke with the patient's son and he agrees. He thinks a less invasive approach is better since she has had multiple needle sticks and she is in quite a bit of pain today. I will discuss with ostrich farm worker regarding care plan. <ELECTRONICALLY SIGNED> By: Rayshawn Duarte DPM 05/03/19 1319 1130 1209Rayshawn Duarte DPM /nt
--- NOTE | 2019-05-03 13:19 | CON ---
[address] [address] CONSULTATION Name: MARÍA CASTILLO Room: [address] IN M.R.#: [id number] Admission: 04/13/19 Attend Phys: Maday Torrez Discharge: Date of : 45 Report #: [id number] THIS REPORT FOR: //name// cc: Nestor Contreras Bruce R. DO ~ THIS REPORT FOR: //name// CC: Nestor yBrnes DATE OF SERVICE: 04/28/2019 ADMISSION DIAGNOSIS: Acute blood loss anemia. CHIEF COMPLAINT AND HISTORY OF PRESENT ILLNESS: Podiatric consultation regarding bilateral foot and ankle pain. The patient is complicated medical history, prior lumbar spine fusion roughly 6 years ago with retained hardware. Also rheumatoid arthritis, she is steroid dependent and on methotrexate. She states she is unable to place weight to her feet, particularly the right foot and ankle, and she has pain that radiates up the extremities to the lower back. 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 She has a history of vaginal cancer, status post chemoradiation. She had recent CT scan of her spine, which showed solid fusion with no hardware fracture/loosening. Yesterday, she was unable to rise from bed due to pain, today she is able to sit up with assistance and transferred to a reclining chair. Blood cultures from 04/15/2019 negative x 2. LABORATORY DATA: WBC 11.4, RBC 3.75, hemoglobin 10.7, hematocrit 32.6, platelets 131, BUN 16, creatinine 0.7, glucose 78. Uric acid 2.4. Albumin 2.1, ESR 100. PHYSICAL EXAMINATION: The right lower extremity is inflamed extending from the hindfoot and ankle joint to the lower leg. There is global pain to the area, and every joint I palpate is painful, including the subtalar, ankle, tarsometatarsal and Chopart joints. She can extend the right ankle to roughly -5 degrees with some pain localized to the ankle as well as extending up the anterolateral leg to above the knee. She has a left drop foot deformity and can only achieve roughly -30 degrees of ankle joint extension with severe pain radiating up the left lateral leg to the lower back when she tries to extend the ankle. She has severe pain when I try to perform a straight leg raise to both extremities. The right lower leg is warm to the touch, whereas the left is not. She has strong dorsalis pedis and posterior tibial pulses bilaterally. She has swelling to the right inferior heel with pain at the plantar fascial insertion. Slight tenderness with palpation of both calves. No popliteal adenopathy or masses noted bilaterally. No open lesions to either extremity. Toenails are dystrophic with no paronychia. She has some [place] [address] CONSULTATION Name: MARÍA CASTILLO Room: [address] ADM IN M.R.#: [id number] Admission: 04/13/19 Attend Phys: Maday Torrez Discharge: Date of : 45 Report #: [id number] with minimal lower leg hair growth. IMPRESSION: Bilateral foot and ankle pain, right greater than left, low back pathology/pain, rheumatoid arthritis, acute blood loss. PLAN: The patient could have an acute gout flareup to the right ankle or hindfoot joints. Other possibilities include rheumatoid arthritis flare or stress fracture. I feel septic arthritis is a very low possibility given her history and clinical findings. I will obtain x-rays of both feet and ankles as well as bilateral venous Doppler. I will consider intraarticular corticosteroid injection to the right ankle and subtalar joint tomorrow pending her clinical course. <ELECTRONICALLY SIGNED> By: Rayshawn Duarte DPM 05/03/19 1319 1719 [id number] Duarte DPM /nt
[2019-05-03 17:59] VITALS: BP 138/79
[2019-05-03 20:00] VITALS: BP 158/81
[2019-05-04 00:03] VITALS: BP 146/70
[2019-05-04 04:19] VITALS: BP 142/65
[2019-05-04 06:01] LABS: HEMATOCRIT 26.4 % (37.0-47.0); HEMOGLOBIN 8.8 gm/dL (12.0-15.0); MCH 28.4 pg (26.0-34.0); MCHC 33.4 g/dL (28.0-37.0); MCV 85.2 fL (80.0-100.0); MPV 7.3 fl. (7.2-11.1); RBC 3.09 mil/uL (4.20-5.00); RDW-CV 21.8 % (10.5-14.5); WBC 15.8 thou/uL (4.0-11.0)
[2019-05-04 06:08] LABS: ALBUMIN 1.5 g/dL (3.4-5.0); CALCIUM 7.3 mg/dL (8.5-10.1); CREATININE 0.6 mg/dL (0.6-1.3); MAGNESIUM 1.6 mg/dL (1.8-2.4); POTASSIUM 3.5 mmol/L (3.5-5.1); TOTAL BILIRUBIN 0.5 mg/dL (<0.1-1.0); TOTAL PROTEIN 6.8 g/dL (6.4-8.2)
[2019-05-04 10:59] VITALS: BP 168/87
--- NOTE | 2019-05-04 12:42 | CON ---
[address] [address] CONSULTATION Name: MARÍA CASTILLO Room: [address] IN M.R.#: [id number] Admission: 04/13/19 Attend Phys: Maday Torrez Discharge: Date of : 45 Report #: [id number] THIS REPORT FOR: //name// cc: Nestor Contreras Bruce R. DO ~ THIS REPORT FOR: //name// CC: Nestor Byrnes DATE OF SERVICE: 05/03/2019 INFECTIOUS DISEASE CONSULTATION ATTENDING PHYSICIAN: Dr. Ferrer. REASON FOR EVALUATION: Polymicrobial septicemia. HISTORY OF PRESENT ILLNESS: Chart reviewed, patient examined. This is a 73-year-old with a complicated medical history, has known history of uterine cancer, underwent chemoradiation, has a known history of previous subtotal colectomy, has a ileocolonic anastomosis. She was admitted with what was felt to be lower gastrointestinal hemorrhage, requiring transfusion. She underwent sigmoidoscopy which showed some friable tissue suggesting proctitis. Post-procedural course has been complicated by a small-bowel obstruction, she has been treated conservatively. As a result, she has been on TPN. Recent cultures of the blood have shown some group B streptococcal species. Blood cultures on the , awaiting ID and susceptibility. A repeat culture on the was negative; however, the another culture on the is now growing yeast species. She has been on combination therapy with vancomycin as well as piperacillin and tazobactam. She is quite weak. Denies significant amount of pain, although that is not entirely clear if that is the case. She does have an NG in place. She is drinking quite a bit of water. There is a clearish output from the NG. Most recent imaging, plain film of the abdomen shows ongoing small-bowel obstruction with perhaps slight improvement. CT abdomen and pelvis from 04/29/2019 without evidence of fluid collection or abscess. ALLERGIES: LISTED TO CODEINE, IBUPROFEN. CURRENT MEDICATIONS: Include metoclopramide, vancomycin, insulin lispro, pantoprazole, methyl salicylate, hydromorphone, Zosyn, gabapentin, p.r.n. analgesics, antiemetics, cyclobenzaprine, colestipol, pioglitazone, metformin. PAST MEDICAL HISTORY: Includes Crohn's disease, history of uterine cancer, [place] [address] CONSULTATION Name: MARÍA CASTILLO Room: [address] IN [facility]#: [id number] Admission: 04/13/19 Attend Phys: Maday Torrez Discharge: Date of : 45 Report #: [id number] SOCIAL HISTORY: Nonsmoker, no ethanol, no illicit drug use. FAMILY HISTORY: Noncontributory. REVIEW OF SYSTEMS: As above. Denies any significant pulmonary-related complaints. PHYSICAL EXAMINATION: GENERAL: She appears chronically ill, undernourished, appears to be in moderate distress. VITAL SIGNS: Temperature 98, pulse 102, respirations 20, blood pressure 139/86. SKIN: Warm, dry, no rashes. HEENT: Extraocular muscles intact. NECK: Supple. LUNGS: Scattered coarse breath sounds, primarily at the bases. HEART: Regular. Borderline tachycardic. I do not appreciate murmur. ABDOMEN: Somewhat distended. There are no overt peritoneal signs. GENITOURINARY AND RECTAL: Deferred. LABORATORY DATA: Lactic acid 2.0. Electrolytes: Sodium 132, potassium of 4.0, chloride 100, bicarbonate is 25, anion gap of 7, BUN and creatinine 17 and 0.6, glucose of 202. AST of 101, ALT of 101. Albumin of 1.6, total protein 7.3. Prealbumin of 17.6. Blood cultures described above. ASSESSMENT: Polymicrobial septicemia. She is on TPN and may account for the yeast. We will add therapy pending results. Continue current antibacterial therapy as well. Overall, some evidence of improvement, although the persistent small-bowel obstruction certainly will have to follow closely and monitor expectantly for signs of nosocomial related infectious complications as well, may have to exchange out the blood cultures. We will repeat those in a.m. on the . <ELECTRONICALLY SIGNED> By: Arnoldo Gabriel MD 05/04/19 1242 1554 [id number] Gabriel MD /nt
[2019-05-04 13:19] VITALS: BP 146/72
[2019-05-04 17:30] VITALS: BP 150/67
[2019-05-04 20:00] VITALS: BP 148/72
[2019-05-05] VITALS (7 sets, daily range): BP systolic 120–160; BP diastolic 68–79
[2019-05-05 05:32] LABS: HEMATOCRIT 25.2 % (37.0-47.0); HEMOGLOBIN 8.3 gm/dL (12.0-15.0); MCH 28.2 pg (26.0-34.0); MCV 85.4 fL (80.0-100.0); MPV 8.1 fl. (7.2-11.1); RBC 2.95 mil/uL (4.20-5.00); RDW-CV 23.6 % (10.5-14.5)
[2019-05-05 06:30] LABS: ALBUMIN 1.6 g/dL (3.4-5.0); CALCIUM 7.1 mg/dL (8.5-10.1); CREATININE 0.6 mg/dL (0.6-1.3); MAGNESIUM 1.7 mg/dL (1.8-2.4); POTASSIUM 3.4 mmol/L (3.5-5.1); TOTAL BILIRUBIN 0.5 mg/dL (<0.1-1.0); TOTAL PROTEIN 6.6 g/dL (6.4-8.2)
[2019-05-06 04:19] LABS: HEMATOCRIT 26.1 % (37.0-47.0); HEMOGLOBIN 8.7 gm/dL (12.0-15.0); MCH 28.6 pg (26.0-34.0); MCHC 33.1 g/dL (28.0-37.0); MCV 86.3 fL (80.0-100.0); MPV 8.1 fl. (7.2-11.1); NUCLEATED RBCS 0 /100WBC; PLATELET COUNT* 114 thou/uL (150-400); RBC 3.03 mil/uL (4.20-5.00); RDW-CV 23.3 % (10.5-14.5); WBC 12.7 thou/uL (4.0-11.0)
[2019-05-06 04:30] LABS: ALBUMIN 1.6 g/dL (3.4-5.0); CALCIUM 6.9 mg/dL (8.5-10.1); CREATININE 0.6 mg/dL (0.6-1.3); POTASSIUM 3.5 mmol/L (3.5-5.1); TOTAL BILIRUBIN 0.3 mg/dL (<0.1-1.0); TOTAL PROTEIN 6.7 g/dL (6.4-8.2)
[2019-05-06 05:29] LABS: ESR (SEDRATE) 100 mm/hr (0-30)
[2019-05-06 06:13] LABS: ABSOLUTE LYMPHOCYTES 0.6 thou/uL (0.8-5.3); ABSOLUTE MONOCYTES 0.3 thou/uL (0.0-1.2); ABSOLUTE NEUTROPHILS 11.8 thou/uL (1.6-8.1); PLATELET ESTIMATE ADEQUATE
[2019-05-06 08:15] VITALS: BP 147/65
[2019-05-06 12:39] VITALS: BP 153/79
[2019-05-06 19:47] VITALS: BP 163/85
[2019-05-07 09:45] VITALS: BP 153/83
[2019-05-07 16:45] VITALS: BP 151/67
[2019-05-07 20:30] VITALS: BP 161/81
[2019-05-08 07:15] VITALS: BP 166/88
[2019-05-08 20:00] VITALS: BP 158/85
[2019-05-09 04:18] LABS: HEMATOCRIT 33.1 % (37.0-47.0); MCHC 32.6 g/dL (28.0-37.0); MCV 85.8 fL (80.0-100.0); MPV 8.3 fl. (7.2-11.1); RBC 3.86 mil/uL (4.20-5.00); RDW-CV 23.2 % (10.5-14.5); WBC 17.2 thou/uL (4.0-11.0)
[2019-05-09 04:39] LABS: CALCIUM 6.9 mg/dL (8.5-10.1); CREATININE 0.6 mg/dL (0.6-1.3); MAGNESIUM 1.9 mg/dL (1.8-2.4); POTASSIUM 3.7 mmol/L (3.5-5.1); TOTAL BILIRUBIN 0.3 mg/dL (<0.1-1.0); TOTAL PROTEIN 7.2 g/dL (6.4-8.2)
[2019-05-09 05:04] LABS: HEMOGLOBIN 10.8 gm/dL (12.0-15.0)
[2019-05-09 08:13] VITALS: BP 165/81
[2019-05-09 16:00] VITALS: BP 114/48
[2019-05-09 21:40] VITALS: BP 195/91
[2019-05-10 01:00] VITALS: BP 160/81
[2019-05-10 04:54] VITALS: BP 153/79
[2019-05-10 07:50] VITALS: BP 173/94
[2019-05-10 16:00] VITALS: BP 132/81
[2019-05-10 21:20] VITALS: BP 159/86
[2019-05-11 05:47] LABS: HEMATOCRIT 31.8 % (37.0-47.0); HEMOGLOBIN 10.6 gm/dL (12.0-15.0); MCH 28.7 pg (26.0-34.0); MCHC 33.2 g/dL (28.0-37.0); MCV 86.5 fL (80.0-100.0); MPV 8.7 fl. (7.2-11.1); RBC 3.67 mil/uL (4.20-5.00); RDW-CV 24.4 % (10.5-14.5); WBC 10.8 thou/uL (4.0-11.0)
[2019-05-11 06:04] LABS: CALCIUM 6.9 mg/dL (8.5-10.1); CREATININE 0.6 mg/dL (0.6-1.3); MAGNESIUM 1.8 mg/dL (1.8-2.4); POTASSIUM 3.8 mmol/L (3.5-5.1)
[2019-05-11 08:15] VITALS: BP 134/61
[2019-05-11 16:00] VITALS: BP 128/59
--- NOTE | 2019-05-11 16:07 | PATH ---
[address] [address] PATHOLOGY RPT PROCEDURE Name: MARÍA CASTILLO Maru Room: [address] IN M.R.#: [id number] Admission: 04/13/19 Date of : 45 Discharge: Report #: [id number] Path Case #: [id number] [facility] Accession Number: [id number] . 01 Material submitted: . PART A: small bowel - SMALL BOWEL BIOPSIES PART B: duodenum bulb - DUODENAL BULB, R/O CELIAC PART C: esophagus - ESOPHAGEAL ULCERATIONS TO R/O HSV . 01 Clinical history: . R/O celiac, R/O HSV . 02 Diagnosis: A. Small bowel biopsies: - Normal duodenal/small intestinal mucosa. . B. Duodenal bulb: - Normal duodenal mucosa. . C. Esophageal ulcerations: - Characteristic of herpes esophagitis with ulceration. See comment. (MAYELIN:jessi; 05/11/2019) S 05/11/2019 1328 Local . 02 Comment: The esophageal ulcerations biopsy (C) shows benign esophageal mucosa with severe active inflammation and ulceration and abundant nuclear features typical of herpes. (MAYELIN:jessi; 05/11/2019) . 02 Electronically signed: . Agustin Weston MD, Pathologist NPI- [id number] . 01 Gross description: . A. The specimen is received in formalin, labeled "María New", "small bowel biopsies". Received are multiple segments of pale viveros soft tissue, each measuring 0.2 cm. The specimen is entirely submitted in cassette A1. . B. The specimen is received in formalin, labeled "María New", "duodenal bulb". Received are 2 segments of pale viveros soft tissue measuring 0.2 and 0.3 cm. The specimen is entirely submitted in cassette B1. . C. The specimen is received in formalin, labeled "María New", "esophageal ulcerations". Received are multiple segments of pale white-viveros soft tissue ranging in size from 0.1 cm to 0.2 [place] [address] PATHOLOGY RPT PROCEDURE Name: SYDNEEMARÍA Nassar Room: [address] IN M.R.#: [id number] Admission: 04/13/19 Date of : 45 Discharge: Report #: [id number] Path Case #: [id number] is entirely submitted in cassette C1.(SNA; 05/10/2019) JG/MARIA G 05/10/2019 1827 Local . 02 Pathologist provided ICD-10: K92.2, D64.9 . 02 CPT . 473995, 998625, 155257 Specimen Comment: A courtesy copy of this report has been sent to [phone] Specimen Comment: [phone], Specimen Comment: Report sent to ,DR HERNANDEZ / DR ASHRAF Performed at: [address] [facility] [address], [place], [place] [id number] MD Vic Juan MD Phone: [phone] Performed at: [address] [facility] [address] [place], [place] [id number] MD Agustin Weston MD Phone: [phone]
[2019-05-12] VITALS: BP 147/80
[2019-05-12 09:18] VITALS: BP 142/66
[2019-05-12 12:00] VITALS: BP 158/79
[2019-05-12 16:15] VITALS: BP 140/88
[2019-05-12 20:00] VITALS: BP 142/83
[2019-05-13 04:14] LABS: HEMATOCRIT 31.1 % (37.0-47.0); HEMOGLOBIN 10.4 gm/dL (12.0-15.0); MCH 28.8 pg (26.0-34.0); MCHC 33.4 g/dL (28.0-37.0); MCV 86.1 fL (80.0-100.0); MPV 8.5 fl. (7.2-11.1); RBC 3.61 mil/uL (4.20-5.00); RDW-CV 24.2 % (10.5-14.5); WBC 7.3 thou/uL (4.0-11.0)
[2019-05-13 04:35] LABS: CALCIUM 7.6 mg/dL (8.5-10.1); CREATININE 0.6 mg/dL (0.6-1.3); MAGNESIUM 1.7 mg/dL (1.8-2.4); POTASSIUM 3.7 mmol/L (3.5-5.1)
[2019-05-13 09:00] VITALS: BP 142/69
[2019-05-13 16:27] VITALS: BP 133/67
[2019-05-14] VITALS: BP 152/82
[2019-05-14 07:30] VITALS: BP 122/69
[2019-05-14 15:00] VITALS: BP 116/77
--- NOTE | 2019-05-14 17:40 | OP ---
[address] [address] OPERATIVE REPORT Name: MARÍA CASTILLO Room: [address] IN M.R.#: [id number] Admission: 04/13/19 Attend Phys: Maday Torrez Discharge: Date of : 45 Report #: [id number] THIS REPORT FOR: //name// cc: Nestor Contreras Bruce R. DO ~ THIS REPORT FOR: //name// CC: Nestor Byrnes DATE OF SERVICE: 05/12/2019 PREOPERATIVE DIAGNOSIS: Septicemia. POSTOPERATIVE DIAGNOSIS: Septicemia. OPERATIVE PROCEDURE: Removal of right subclavian PowerPort. ANESTHESIA: IV sedation with 1% lidocaine and 0.5% Marcaine with epinephrine. DESCRIPTION OF PROCEDURE: The patient was brought into the operative suite and placed in the supine position and placed under IV sedation and the patient's right subclavicular area were carefully prepped and draped in a sterile fashion. A timeout was taken. The patient was on scheduled antibiotics. I infiltrated around the port site with 10 mL of the lidocaine, Marcaine mixture and reopened the transverse incision in the patient's right subclavicular area. I dissected sharply and then with cautery into the port pocket and lifted up the PowerPort and cut the 2 anchoring sutures anteriorly and eviscerated out the port and removed it from the internal jugular insertion site. After holding pressure for several minutes, there was no active bleeding. I cauterized bleeding points on the skin edges, packed the wound with a strip of Aquacel gauze and then plain gauze and tape ending the operative procedure. Estimated blood loss 3 mL. Sponge and instrument counts correct. The patient was returned to recovery in satisfactory condition. <ELECTRONICALLY SIGNED> By: Tracy Reyes MD 05/14/19 1740 0805 [id number] Reyes MD /nt
[2019-05-14 21:05] VITALS: BP 137/76
[2019-05-15 04:38] LABS: ABSOLUTE LYMPHOCYTES 1.1 thou/uL (0.8-5.3); ABSOLUTE MONOCYTES 0.5 thou/uL (0.0-1.2); BASOPHILS 0.1 %; EOSINOPHILS 0.2 %; HEMATOCRIT 33.6 % (37.0-47.0); HEMOGLOBIN 11.1 gm/dL (12.0-15.0); LYMPHOCYTES 12.5 %; MCH 28.6 pg (26.0-34.0); MCHC 33.1 g/dL (28.0-37.0); MCV 86.6 fL (80.0-100.0); MONOCYTES 6.2 %; MPV 8.9 fl. (7.2-11.1); NUCLEATED RBCS 0 /100WBC; PLATELET COUNT* 142 thou/uL (150-400); RBC 3.88 mil/uL (4.20-5.00); RDW-CV 24.2 % (10.5-14.5); WBC 8.6 thou/uL (4.0-11.0)
[2019-05-15 07:26] LABS: ANISOCYTOSIS 2+; PLATELET ESTIMATE ADEQUATE
[2019-05-15 07:30] VITALS: BP 124/68
[2019-05-15] MEDS ORDERED: PANTOPRAZOLE SO40 M1 PO (08:28)
[2019-05-15] MEDS ORDERED: MESALAMINE4 GM/60 M2 RECTAL (08:28)
[2019-05-15] MEDS ORDERED: PREDNISONE 20 M20 MG PO (08:28)
[2019-05-15] MEDS ORDERED: REGLAN 10 MG TA10 MG PO (08:28)
[2019-05-15] MEDS ORDERED: GABAPENTIN 100100 MG PO (08:28)
[2019-05-15] MEDS ORDERED: VOLTAREN GEL 1100 G1 TOP (08:28)
[2019-05-15] MEDS ORDERED: PAIN RELIEVER500 MG PO (08:28)
[2019-05-15] MEDS ORDERED: VALTREX 500 MG500 M1 PO (08:28)
[2019-05-15 10:12] VITALS: BP 113/73
[2019-05-15 19:30] VITALS: BP 129/69
[2019-05-16 07:20] VITALS: BP 122/65
[2019-05-16 16:30] VITALS: BP 134/60
[2019-05-16 20:40] VITALS: BP 131/73
[2019-05-17] MEDS ORDERED: MYCAMINE100 MG IV (07:47)
[2019-05-17] MEDS ORDERED: HUMALOG100 UNIT/1 SUBQ (07:47)
[2019-05-17 08:00] VITALS: BP 118/66
== END 2019-05-17 16:04 | DRG 314 ==
LOC: M.ERS 11:24 → M.2W 13:33 → M.TBA-ER 13:33 → M.2W 16:45 → M.ORTHSURG 04-24 08:01 → M.2W 04-29 15:00 → M.ORTHSURG 05-05 18:07 → M.3W 05-13 15:08
PROVIDERS: Family Medicine; Internal Medicine; Internal Medicine Gastroenterology; Surgery; ADMIT Internal Medicine
PROC: 0DBP8ZX Excision of Rectum, Via Natural or Artificial Opening Endoscopic, Diagnostic (ICD-10-PCS; principal; 2019-04-15)
PROC: 0D9670Z Drainage of Stomach with Drainage Device, Via Natural or Artificial Opening (ICD-10-PCS; 2019-05-01)
PROC: 0DB58ZX Excision of Esophagus, Via Natural or Artificial Opening Endoscopic, Diagnostic (ICD-10-PCS; 2019-05-10)
PROC: 0DB98ZX Excision of Duodenum, Via Natural or Artificial Opening Endoscopic, Diagnostic (ICD-10-PCS; 2019-05-10)
PROC: 0JPT0WZ Removal of Totally Implantable Vascular Access Device from Trunk Subcutaneous Tissue and Fascia, Open Approach (ICD-10-PCS; 2019-05-12)
PROC: 30233N1 Transfusion of Nonautologous Red Blood Cells into Peripheral Vein, Percutaneous Approach (ICD-10-PCS; 2019-05-16)
DX: T80.211A Bloodstream infection due to central venous catheter, initial encounter (principal); A40.3 Sepsis due to Streptococcus pneumoniae; G92 Toxic encephalopathy; E43 Unspecified severe protein-calorie malnutrition; J13 Pneumonia due to Streptococcus pneumoniae; K92.2 Gastrointestinal hemorrhage, unspecified; A04.9 Bacterial intestinal infection, unspecified; D62 Acute posthemorrhagic anemia; K50.90 Crohn's disease, unspecified, without complications; K56.609 Unspecified intestinal obstruction, unspecified as to partial versus complete obstruction; K56.7 Ileus, unspecified; K62.6 Ulcer of anus and rectum; F41.9 Anxiety disorder, unspecified; N89.8 Other specified noninflammatory disorders of vagina; M06.9 Rheumatoid arthritis, unspecified; M19.071 Primary osteoarthritis, right ankle and foot; E78.5 Hyperlipidemia, unspecified; K64.8 Other hemorrhoids; K64.4 Residual hemorrhoidal skin tags; K52.9 Noninfective gastroenteritis and colitis, unspecified; E61.1 Iron deficiency; T50.905A Adverse effect of unspecified drugs, medicaments and biological substances, initial encounter; M19.91 Primary osteoarthritis, unspecified site; K62.89 Other specified diseases of anus and rectum; K31.84 Gastroparesis; K20.8 Other esophagitis; M46.1 Sacroiliitis, not elsewhere classified; Y92.89 Other specified places as the place of occurrence of the external cause; Z85.89 Personal history of malignant neoplasm of other organs and systems; Z92.21 Personal history of antineoplastic chemotherapy; Z88.6 Allergy status to analgesic agent; Y84.8 Other medical procedures as the cause of abnormal reaction of the patient, or of later complication, without mention of misadventure at the time of the procedure

== ENCOUNTER → 2019-04-13 | Outpatient (CLI) | payer MEDICARE, BC ==
[~2019-04-13] MED LIST changes: +ACTOS 30 MG TAB30 M1 PO; +ALPRAZOLAM 0.50.5 M1 PO; +COLESTID1 GM PO; +LIALDA1.2 GM PO; +LIDOCAINE HCL85 GM TOP; +SSD CREAM 1% 5050 GM TOP
== END ==
LOC: M.WC 04:41
DX: E11.622 Type 2 diabetes mellitus with other skin ulcer (principal); L98.491 Non-pressure chronic ulcer of skin of other sites limited to breakdown of skin; N76.6 Ulceration of vulva; L59.8 Other specified disorders of the skin and subcutaneous tissue related to radiation; C51.9 Malignant neoplasm of vulva, unspecified; I89.0 Lymphedema, not elsewhere classified; E78.00 Pure hypercholesterolemia, unspecified; M06.9 Rheumatoid arthritis, unspecified; K50.90 Crohn's disease, unspecified, without complications; F32.9 Major depressive disorder, single episode, unspecified; F41.9 Anxiety disorder, unspecified; Z85.44 Personal history of malignant neoplasm of other female genital organs; Y84.2 Radiological procedure and radiotherapy as the cause of abnormal reaction of the patient, or of later complication, without mention of misadventure at the time of the procedure

== ENCOUNTER 2019-05-17 15:10 | Inpatient (IN) | payer MEDICARE, BC ==
[~2019-05-17] VITALS: Ht 154.9 cm; Wt 54.0 kg
[~2019-05-17 15:10] MED LIST changes: +CIPRO500 M1 PO; +GABAPENTIN 100100 MG PO; +HUMALOG100 UNIT/1 SUBQ; +MESALAMINE4 GM/60 M2 RECTAL; +METRONIDAZOLE500 M4 PO; +MYCAMINE100 MG IV; +PAIN RELIEVER500 MG PO; +PANTOPRAZOLE SO40 M1 PO; +PREDNISONE 20 M20 MG PO; +REGLAN 10 MG TA10 MG PO; +VALTREX 500 MG500 M1 PO; +VOLTAREN GEL 1100 G1 TOP
[2019-05-17 16:18] VITALS: BP 132/80
[2019-05-17 20:09] VITALS: BP 133/77
[2019-05-18 04:34] LABS: CALCIUM 7.6 mg/dL (8.5-10.1); CREATININE 0.7 mg/dL (0.6-1.3); HEMATOCRIT 31.6 % (37.0-47.0); HEMOGLOBIN 10.6 gm/dL (12.0-15.0); MCH 29.2 pg (26.0-34.0); MCHC 33.4 g/dL (28.0-37.0); MCV 87.5 fL (80.0-100.0); MPV 7.5 fl. (7.2-11.1); POTASSIUM 3.7 mmol/L (3.5-5.1); RBC 3.62 mil/uL (4.20-5.00); RDW-CV 24.9 % (10.5-14.5); WBC 7.3 thou/uL (4.0-11.0)
[2019-05-18 08:00] VITALS: BP 124/72
[2019-05-18 20:00] VITALS: BP 122/65; BP 126/42
[2019-05-19 08:30] VITALS: BP 129/64
[2019-05-19 19:30] VITALS: BP 127/67
[2019-05-20 08:00] VITALS: BP 120/58
[2019-05-20 20:03] VITALS: BP 133/64
[2019-05-21 09:30] VITALS: BP 117/63
[2019-05-21 20:10] VITALS: BP 113/59
[2019-05-22 07:51] VITALS: BP 109/64
[2019-05-22 10:37] LABS: ABSOLUTE LYMPHOCYTES 0.9 thou/uL (0.8-5.3); ABSOLUTE MONOCYTES 0.3 thou/uL (0.0-1.2); ABSOLUTE NEUTROPHILS 3.5 thou/uL (1.6-8.1); BASOPHILS 0.4 %; EOSINOPHILS 0.4 %; HEMATOCRIT 31.1 % (37.0-47.0); HEMOGLOBIN 10.1 gm/dL (12.0-15.0); LYMPHOCYTES 19.8 %; MCH 29.5 pg (26.0-34.0); MCHC 32.4 g/dL (28.0-37.0); MONOCYTES 6.1 %; MPV 7.2 fl. (7.2-11.1); NUCLEATED RBCS 0 /100WBC; PLATELET COUNT* 125 thou/uL (150-400); POLYS 73.3 %; RBC 3.42 mil/uL (4.20-5.00); RDW-CV 25.3 % (10.5-14.5); WBC 4.8 thou/uL (4.0-11.0)
[2019-05-22 10:55] LABS: CALCIUM 7.4 mg/dL (8.5-10.1); CREATININE 0.8 mg/dL (0.6-1.3); POTASSIUM 3.2 mmol/L (3.5-5.1); TOTAL BILIRUBIN 0.2 mg/dL (<0.1-1.0); TOTAL PROTEIN 6.9 g/dL (6.4-8.2)
[2019-05-22 11:04] LABS: ANISOCYTOSIS 2+
[2019-05-22 11:05] LABS: PLATELET ESTIMATE ADEQUATE
[2019-05-22 20:00] VITALS: BP 114/59
[2019-05-23 08:00] VITALS: BP 139/69
[2019-05-23 10:09] LABS: HEMATOCRIT 26.9 % (37.0-47.0); HEMOGLOBIN 8.9 gm/dL (12.0-15.0); MCH 29.7 pg (26.0-34.0); MCHC 33.3 g/dL (28.0-37.0); MCV 89.1 fL (80.0-100.0); MPV 7.4 fl. (7.2-11.1); RBC 3.01 mil/uL (4.20-5.00); RDW-CV 25.2 % (10.5-14.5); WBC 3.3 thou/uL (4.0-11.0)
[2019-05-23 19:00] VITALS: BP 125/74
[2019-05-24 08:32] VITALS: BP 133/65
[2019-05-24 18:10] LABS: ABSOLUTE LYMPHOCYTES 1.5 thou/uL (0.8-5.3); ABSOLUTE MONOCYTES 0.4 thou/uL (0.0-1.2); ABSOLUTE NEUTROPHILS 3.2 thou/uL (1.6-8.1); BASOPHILS 0.3 %; HEMATOCRIT 30.8 % (37.0-47.0); HEMOGLOBIN 10.2 gm/dL (12.0-15.0); LYMPHOCYTES 29.2 %; MCH 29.7 pg (26.0-34.0); MCHC 33.1 g/dL (28.0-37.0); MCV 89.6 fL (80.0-100.0); MONOCYTES 7.2 %; MPV 6.9 fl. (7.2-11.1); NUCLEATED RBCS 0 /100WBC; PLATELET COUNT* 132 thou/uL (150-400); POLYS 63.3 %; RBC 3.44 mil/uL (4.20-5.00); RDW-CV 25.9 % (10.5-14.5)
[2019-05-24 18:17] LABS: CALCIUM 7.9 mg/dL (8.5-10.1); CREATININE 0.7 mg/dL (0.6-1.3); POTASSIUM 3.9 mmol/L (3.5-5.1)
[2019-05-24 19:54] LABS: ANISOCYTOSIS 3+; HYPOCHROMASIA Occasional; MICROCYTES 1+; PLATELET ESTIMATE ADEQUATE
[2019-05-24 19:55] LABS: OVALOCYTES Occasional
[2019-05-24 20:00] VITALS: BP 150/58
[2019-05-25 08:00] VITALS: BP 146/74
[2019-05-25 20:00] VITALS: BP 129/52
[2019-05-26 08:37] VITALS: BP 149/78
[2019-05-26 20:09] VITALS: BP 115/63
[2019-05-27 08:04] VITALS: BP 122/62
[2019-05-27 20:10] VITALS: BP 109/63
[2019-05-28 07:34] VITALS: BP 134/67
[2019-05-28 19:30] VITALS: BP 137/65
[2019-05-29 06:59] VITALS: BP 119/51
[2019-05-29 08:00] VITALS: BP 119/51
[2019-05-29 20:00] VITALS: BP 113/59
[2019-05-30 08:00] VITALS: BP 102/60
[2019-05-30 20:30] VITALS: BP 113/70
[2019-05-31 08:00] VITALS: BP 110/60
[2019-05-31 20:00] VITALS: BP 133/79
[2019-06-01 08:00] VITALS: BP 134/75
[2019-06-02 15:43] VITALS: BP 134/75
[2019-06-02 20:00] VITALS: BP 136/64
[2019-06-03 07:30] VITALS: BP 114/68
[2019-06-03] MEDS ORDERED: TRADJENTA5 MG PO (11:33)
[2019-06-03 11:49] VITALS: BP 114/68
[2019-06-03 11:57] VITALS: BP 114/68
[2019-06-03] MEDS ORDERED: METFORMIN HCL500 M3 PO (14:10)
[2019-06-03] MEDS ORDERED: PREDNISONE 5 MG5 M1 PO (14:15)
[2019-06-03 15:05] VITALS: BP 114/68
== END 2019-06-03 15:05 | disposition home health service (06) | DRG 947 ==
LOC: M.REH 15:10
PROVIDERS: Specialist; ADMIT Physical Medicine & Rehabilitation; ATTEND Physical Medicine & Rehabilitation
DX: R53.81 Other malaise (principal); A40.9 Streptococcal sepsis, unspecified; E43 Unspecified severe protein-calorie malnutrition; G92 Toxic encephalopathy; K50.90 Crohn's disease, unspecified, without complications; K92.2 Gastrointestinal hemorrhage, unspecified; K56.7 Ileus, unspecified; L03.115 Cellulitis of right lower limb; K31.84 Gastroparesis; K52.9 Noninfective gastroenteritis and colitis, unspecified; M06.9 Rheumatoid arthritis, unspecified; R63.0 Anorexia; F41.9 Anxiety disorder, unspecified; K63.89 Other specified diseases of intestine; M19.91 Primary osteoarthritis, unspecified site; E61.1 Iron deficiency; K20.8 Other esophagitis; T50.905A Adverse effect of unspecified drugs, medicaments and biological substances, initial encounter; Z90.49 Acquired absence of other specified parts of digestive tract; Z68.20 Body mass index [BMI] 20.0-20.9, adult; Z88.6 Allergy status to analgesic agent; Z88.8 Allergy status to other drugs, medicaments and biological substances; Y92.89 Other specified places as the place of occurrence of the external cause; Z80.59 Family history of malignant neoplasm of other urinary tract organ

== ENCOUNTER 2019-09-28 10:53 | Inpatient (IN) | payer MEDICARE, BC ==
[~2019-09-28] VITALS: Ht 152.4 cm; Wt 56.7 kg
[~2019-09-28 10:53] MED LIST changes: +METFORMIN HCL500 M3 PO; +PREDNISONE 5 MG5 M1 PO; +TRADJENTA5 MG PO; -VITAMIN D32000 UNI2 PO; +VITAMIN D3250 MC1 PO
[2019-09-28 10:56] VITALS: BP 122/41
[2019-09-28] MEDS ORDERED: MURO-12815 ML/BOT OPHTHALMIC (11:02)
[2019-09-28] MEDS ORDERED: PREDNISOLONE ACE5 ML LT. EYE (11:02)
[2019-09-28 11:28] LABS: MCH 20.7 pg (26.0-34.0); MCHC 30.2 g/dL (28.0-37.0); MCV 68.6 fL (80.0-100.0); MPV 7.7 fl. (7.2-11.1); NUCLEATED RBCS 1 /100WBC; PLATELET COUNT* 256 thou/uL (150-400); RBC 2.54 mil/uL (4.20-5.00); RDW-CV 26.2 % (10.5-14.5); WBC 12.7 thou/uL (4.0-11.0)
[2019-09-28 11:30] LABS: HEMATOCRIT 17.4 % (37.0-47.0); HEMOGLOBIN 5.2 gm/dL (12.0-15.0)
[2019-09-28 11:43] LABS: CALCIUM 8.2 mg/dL (8.5-10.1); CREATININE 0.9 mg/dL (0.6-1.3); POTASSIUM 3.8 mmol/L (3.5-5.1)
[2019-09-28 11:44] LABS: APTT 19.8 Seconds (25.0-31.3); PROTIME 10.4 Seconds (9.20-11.50)
[2019-09-28 11:51] LABS: ABSOLUTE LYMPHOCYTES 1.5 thou/uL (0.8-5.3); ABSOLUTE MONOCYTES 0.9 thou/uL (0.0-1.2); ABSOLUTE NEUTROPHILS 10.3 thou/uL (1.6-8.1); PLATELET ESTIMATE ADEQUATE
[2019-09-28 11:53] LABS: ALBUMIN 3.3 g/dL (3.4-5.0); TOTAL BILIRUBIN 0.3 mg/dL (<0.1-1.0); TOTAL PROTEIN 7.8 g/dL (6.4-8.2)
--- NOTE | 2019-09-28 13:30 | NUR ---
PT WAS OFFERED A TURKEY SANDWICH. PT STATED THAT SHE "DID NOT WANT IT".
--- NOTE | 2019-09-28 15:46 | EKG ---
[place] [address] ELECTROCARDIOGRAM REPORT Name: MARÍA CASTILLO Room: [place] [address] ADM IN .R.#: [id number] Admission: 09/28/19 Attend Phys: Rah Ornelas Discharge: Date of : 45 Date of Service: 09/28/19 1106 Report #: [id number] THIS REPORT FOR: //name// [facility] ED Test Date: 2019-09-28 Test Time: 11:06:28 Pat Name: MARÍA CASTILLO Department: Room: [facility] Gender: F Medical Billing Specialist: [place] : 1945 Requested By: Alfredo Smith Order Number: [id number] MD: Yimi Quiñones Measurements Intervals [place] Rate: 86 P: 31 FL: 140 QRS: -12 QRSD: 88 T: 36 QT: 376 QTc: 450 Interpretive Statements Sinus rhythm Left ventricular hypertrophy, by voltage Baseline artifact Compared to ECG 04/13/2019 11:37:01 Left ventricular hypertrophy now present Electronically Signed On 09-28-2019 15:45:52 CDT by Yimi Quiñones [email or web address] <ELECTRONICALLY SIGNED> By: Yimi Quiñones MD, FAC 09/28/19 1545 1106 1106 Yimi Quiñones MD, [facility] /EPI
--- NOTE | 2019-09-28 16:29 | NUR ---
PT'S SISTER AT BEDSIDE AND IS ASKING TO BE UPDATED WHILE SHE IS NOT HERE. PT'S SISTER, REMEDIOS CAN BE REACHED AT [phone] (HOME) AND [phone] (CELL).
[2019-09-28 16:55] VITALS: BP 129/48
[2019-09-28 17:40] VITALS: BP 136/57
[2019-09-28 17:52] VITALS: BP 133/56; BP 142/72; BP 156/77
[2019-09-28 20:00] VITALS: BP 134/60
[2019-09-28] MEDS ORDERED: CALCIUM500 MG PO (20:56)
[2019-09-28] MEDS ORDERED: VITAMIN E1000 UNIT PO (20:57)
[2019-09-28] MEDS ORDERED: IRON18 M1 PO (20:58)
[2019-09-28] MEDS ORDERED: JANUVIA100 MG PO (20:58)
[2019-09-28] MEDS ORDERED: METHOTREXATE 22.5 M1 PO (20:59)
[2019-09-28 21:21] LABS: HEMATOCRIT 22.4 % (37.0-47.0); HEMOGLOBIN 7.1 gm/dL (12.0-15.0)
[2019-09-29] VITALS: BP 125/55
[2019-09-29 04:00] VITALS: BP 126/53
[2019-09-29 05:31] LABS: CALCIUM 7.9 mg/dL (8.5-10.1); CREATININE 0.9 mg/dL (0.6-1.3); POTASSIUM 4.1 mmol/L (3.5-5.1)
--- NOTE | 2019-09-29 05:43 | NUR ---
ASSUMED PT CARE AT APPROX 1930. PT IS AWAKE AND ORIENTED X4. 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 s/p BLOOD TRANSFUSION OF 1 UNIT PRBC, NO TRANSFUSION REACTIONS NOTED. REPEAT Hgb IS 7.1. NO ACUTE CHANGES OVERNIGHT. HIGH FALL PRECAUTIONS IN PLACE. CALL LIGHT WITHIN REACH. HOURLY ROUNDING DONE FOR PT SAFETY.
[2019-09-29 08:00] VITALS: BP 136/69
[2019-09-29 08:15] LABS: HEMATOCRIT 22.1 % (37.0-47.0)
[2019-09-29] MEDS ORDERED: NYSTATIN100000 UNI SW&SWALLOW (09:57)
[2019-09-29 12:00] VITALS: BP 133/59
--- NOTE | 2019-09-29 12:08 | NUR ---
Pt states that she has been staying with her sister, sister assists as needed. Pt has a walker that she uses for mobility. No home o2. Hx of [facility]. No hx of SNF. Hx of [facility]. Hbg down, plan EGD tomorrow. Goal is home at sc. Pt wants HH with [facility] [phone] [phone]
[2019-09-29 12:21] LABS: URINE BILIRUBIN NEGATIVE (Negative); URINE BLOOD 1+ (Negative); URINE CLARITY CLEAR; URINE COLOR YELLOW; URINE GLUCOSE-RANDOM NEGATIVE (Negative); URINE KETONES NEGATIVE (Negative); URINE LEUKOCYTES-REFLEX 1+ (Negative); URINE PROTEIN TRACE (Negative); URINE UROBILINOGEN 0.2 E.U./dl (0.2-1.0)
[2019-09-29 12:24] LABS: URINE NITRITE-REFLEX POSITIVE (Negative)
[2019-09-29 12:39] LABS: SQUAMOUS 4-10 Moderate /LPF (0-3)
[2019-09-29 12:40] LABS: BACTERIA-REFLEX >30 Many /HPF (None Seen); CASTS None Seen /LPF (None Seen); CRYSTALS None Seen /LPF (None Seen); MUCUS 0-3 Light strn/LPF (None Seen); URINE RBC 3-10 Few /HPF (0-2); URINE WBC-REFLEX 6-15 Few /HPF (0-5)
[2019-09-29 13:07] LABS: % SATURATION 3 % (20-39); IRON 12 ug/dL (50-175)
[2019-09-29 16:00] VITALS: BP 120/56
--- NOTE | 2019-09-29 18:30 | NUR ---
PATINET RESTING IN BED. IV IRON INFUSING. SCHEDULED FOR EDG TOMORROW MORNING WITH DR ALMITA NPO AFTER MIDNIGHT. VSS AND PATIENT IN NO APPARNET SIGNNS OF DISTRESS. HOURLY ROUNDING COMPLETED FOR PATINET SAFETY.
[2019-09-29 20:00] VITALS: BP 112/49
[2019-09-30] VITALS: BP 134/52
--- NOTE | 2019-09-30 04:52 | NUR ---
ASSUMED PT CARE AT APPROX 1930. PT IS AWAKE AND ORIENTED X4. PT IS TRACING SR ON THE COIL TESTER. PT DENIES PAIN/DISCOMFORT. NO ACUTE CHANGES OVERNIGHT. PT IS REMINDED TO HAVE NOTHING PER [facility] AFTER MIDNIGHT FOR EGD IN AM. CALL LIGHT WITHIN REACH. HOURLY ROUNDING DONE FOR PT SAFETY. HIGH FALL PRECAUTIONS IN PLACE.
[2019-09-30 04:53] LABS: HEMATOCRIT 20.8 % (37.0-47.0); MCH 23.7 pg (26.0-34.0); MCHC 31.6 g/dL (28.0-37.0); MPV 8.5 fl. (7.2-11.1); RBC 2.76 mil/uL (4.20-5.00)
[2019-09-30 04:57] VITALS: BP 119/51
[2019-09-30 05:20] LABS: MCV 75.1 fL (80.0-100.0)
[2019-09-30 05:21] LABS: HEMOGLOBIN 6.6 gm/dL (12.0-15.0)
[2019-09-30 05:51] LABS: POTASSIUM 3.5 mmol/L (3.5-5.1)
[2019-09-30 08:30] VITALS: BP 116/53
[2019-09-30 12:06] VITALS: BP 162/75
[2019-09-30 13:46] VITALS: BP 125/57; BP 131/61; BP 137/61; BP 143/61
[2019-09-30] MEDS ORDERED: NORCO 5-325 TA1 EAC2 PO (16:15)
[2019-09-30 17:52] LABS: HEMATOCRIT 28.6 % (37.0-47.0)
[2019-09-30 17:56] LABS: HEMOGLOBIN 8.9 gm/dL (12.0-15.0)
--- NOTE | 2019-09-30 18:45 | NUR ---
ASSUMED CARE OF PT APPROX 0730. REASSESMENT COMPLETED CHARTED. MEDICATIONS GIVEN CHARTED. PT OFF UNIT THIS AM FOR EGD. ONCE PT WAS BACK TO UNIT 1 UNIT OF PRBC WAS ADMINISTERED TO THE PT. PT CARE DISCUSSED WITH PT AND PTS FAMILY. PT AND FAMILY WERE WANTING TO BE DISCHARGED AFTER UNIT OF BLOOD COMPLETED. PT HAD EPISODE OF RED BLOOD IN STOOL. DR NOTIFIED AND GI NOTIFIED, ORDERS RECIEVED. TELE MONITORING, HOURLY ROUNDING, BED IN LOW POSITION AND CALL LIGHT WITHIN REACH.
[2019-09-30 19:50] VITALS: BP 129/66
[2019-10-01] VITALS: BP 124/54
[2019-10-01 04:00] VITALS: BP 130/50
--- NOTE | 2019-10-01 04:35 | NUR ---
ASSUMED CARE OF PT AT 1900. PT IS ALERT AND ORIENTED. VSS. PERRLA. NO COMPLAINTS OF PAIN. NO BOWEL MOVEMENTS THIS SHIFT. PT IS IN SINUS RYTHM ON THE TELEMETR. PT IS RESTING COMFORTABLY IN BED. RESPIRATIONS ARE EVEN AND NONLABORED. WILL CONTINUE TO MONITOR PT.
[2019-10-01 05:44] LABS: URINE BILIRUBIN NEGATIVE (Negative); URINE BLOOD TRACE (Negative); URINE CLARITY CLEAR; URINE COLOR YELLOW; URINE GLUCOSE-RANDOM TRACE (Negative); URINE KETONES NEGATIVE (Negative); URINE LEUKOCYTES-REFLEX 1+ (Negative); URINE NITRITE-REFLEX NEGATIVE (Negative); URINE PROTEIN NEGATIVE (Negative); URINE SPECIFIC GRAVITY <= 1.005 (1.005-1.030); URINE UROBILINOGEN 0.2 E.U./dl (0.2-1.0)
[2019-10-01 05:58] LABS: BACTERIA-REFLEX >30 Many /HPF (None Seen); CASTS None Seen /LPF (None Seen); CRYSTALS None Seen /LPF (None Seen); MUCUS 0-3 Light strn/LPF (None Seen); SQUAMOUS 0-3 Few /LPF (0-3); URINE RBC 3-10 Few /HPF (0-2); URINE WBC-REFLEX 6-15 Few /HPF (0-5)
[2019-10-01 08:00] VITALS: BP 142/69
--- NOTE | 2019-10-01 11:14 | CON ---
[address] [address] CONSULTATION Name: MARÍA CASTILLO Room: [address] IN M.R.#: [id number] Admission: 09/28/19 Attend Phys: Aisha Fofana Discharge: Date of : 45 Report #: [id number] THIS REPORT FOR: //name// cc: Vinh Vera Vincent DO ~ THIS REPORT FOR: //name// CC: Familia Oglesby DICTATED BY: Divya Collins [facility] DATE OF SERVICE: 09/29/2019 Please note at the time of this dictation, the patient was seen and physically examined by myself. REASON FOR CONSULTATION: Acute anemia. HISTORY OF PRESENT ILLNESS: This is a 73-year-old female who is well known to our practice, who recently had lab work done on Wednesday from our office. We did not receive a call from [employer] given this a critical lab value, which we were noted once we did obtain it. She was 5.3 at that time, in talking to the patient when she had a tele visit with Dr. Meade on because she was feeling very weak and tired and doing a lot of sleeping, which was out of her norm that she had done in the past. Therefore, that is why labs were requested. Her hemoglobin back in July was 9.8. She does have a history of Crohn's and has denied any bleeding when she talked to Dr. Meade on . She states her bowels were moving normal brown and taking her iron supplement and denied anything else. The patient did undergo an EGD back in April that showed herpetic esophagitis. She was treated for it at that time and also then underwent a flexible sigmoidoscopy that showed post-surgical changes, small ulcer noted at the anal verge with radiation proctitis noted at that time. ALLERGIES: ANTI-INFLAMMATORIES AND CODEINE. MEDICATIONS FROM HOME: Prednisone, metformin, Tradjenta, colestipol, lidocaine, Actos, vitamin D, vitamin B12, Cymbalta, folic acid, Lipitor, and amitriptyline. PAST MEDICAL HISTORY: Crohn's disease, vaginal cancer, anxiety, celiac disease. PAST SURGICAL HISTORY: Total colectomy and back surgery. FAMILY HISTORY: [place] [address] CONSULTATION Name: MARÍA CASTILLO Room: [address]#: [id number] Admission: 09/28/19 Attend Phys: Aisha Fofana Discharge: Date of : 45 Report #: [id number] SOCIAL HISTORY: Denies any alcohol, tobacco or illegal drug use. REVIEW OF SYSTEMS: Twelve-point review of systems is essentially negative except what is mentioned in the HPI. PHYSICAL EXAMINATION: VITAL SIGNS: Temperature 37.3, pulse 84, respirations 16, blood pressure 126/63. HEART: Regular rate and rhythm. LUNGS: Diminished, but clear. ABDOMEN: Soft, positive bowel sounds in all 4 quadrants with no masses or tenderness noted. LABORATORY DATA: Hemoglobin on admission was 5.2. She got a unit of blood. She went up to 7.1. She is 7 this a.m. White count is 12.7, platelets 256. PT 10.4, INR is 1, GFR is 61. Her BUN is 16. PT 10.4, INR 1. LFTs are completely normal. IMPRESSION: 1. Acute anemia. 2. Melanotic stool. 3. Fatigue. 4. 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 5. Leukocytosis secondary to chronic steroids. PLAN: 1. Possible EGD tomorrow with Dr. Gross after he speaks with the patient. 2. Transfuse to keep her hemoglobin greater than 7. 3. Await occult stool to be sent. 4. Further recommendations to be made once Dr. Gross sees the patient later today. Thank you for allowing us to participate in this patient's care. Please do not hesitate to call with any questions. <ELECTRONICALLY SIGNED> By: Jason Gross MD 10/01/19 1114 1031 1140Jason Gross MD /nt
[2019-10-01 11:40] LABS: HEMATOCRIT 31.1 % (37.0-47.0); HEMOGLOBIN 9.6 gm/dL (12.0-15.0); MCH 23.2 pg (26.0-34.0); MPV 8.4 fl. (7.2-11.1); NUCLEATED RBCS 2 /100WBC; PLATELET COUNT* 252 thou/uL (150-400); RBC 4.15 mil/uL (4.20-5.00); RDW-CV 27.8 % (10.5-14.5); WBC 12.8 thou/uL (4.0-11.0)
[2019-10-01 12:00] VITALS: BP 142/68
[2019-10-01 12:27] LABS: ABSOLUTE EOSINOPHILS 0.3 thou/uL (0.0-0.7); ABSOLUTE LYMPHOCYTES 1.4 thou/uL (0.8-5.3); ABSOLUTE MONOCYTES 0.9 thou/uL (0.0-1.2); ABSOLUTE NEUTROPHILS 10.2 thou/uL (1.6-8.1); ANISOCYTOSIS 3+; METAMYELOCYTES 1 %; PLATELET ESTIMATE ADEQUATE; POLYCHROMASIA Occasional
[2019-10-01 12:28] LABS: HYPOCHROMASIA 1+; TEARDROPS Occasional
[2019-10-01 12:29] LABS: OVALOCYTES 1+
[2019-10-01 16:09] VITALS: BP 142/71
[2019-10-01 16:31] VITALS: BP 142/71
--- NOTE | 2019-10-01 18:44 | NUR ---
ORDER RECEIVED FOR PRIMARY CARE TPO DISCHARGE PATINET IN THE ABSENCE OF RESULTS FROM RBC TAG SCAN. PATIENT REPORTEED NO NEW BLLOD IN STSOOL TODAY. HGB 9.8. OPT FOLLOW UP WITH GI FOR CAPSULE STUDY. VSS. PATIENT IN NOAPPARNET SIGNS OF DISTRESS. SISTER TO PICK HER UP TODAY. DC TIME OF 18:55.
== END 2019-10-01 18:58 | disposition home health service (06) | DRG 378 ==
LOC: M.ERS 10:53 → M.TBA-ER 12:13 → M.2W 12:13
PROVIDERS: Family Medicine; Internal Medicine Gastroenterology; ADMIT Internal Medicine; ATTEND Internal Medicine
DX: K92.2 Gastrointestinal hemorrhage, unspecified (principal); D62 Acute posthemorrhagic anemia; E44.1 Mild protein-calorie malnutrition; B37.0 Candidal stomatitis; T38.0X5A Adverse effect of glucocorticoids and synthetic analogues, initial encounter; E78.5 Hyperlipidemia, unspecified; F32.9 Major depressive disorder, single episode, unspecified; K58.9 Irritable bowel syndrome, unspecified; E11.9 Type 2 diabetes mellitus without complications; K44.9 Diaphragmatic hernia without obstruction or gangrene; M06.9 Rheumatoid arthritis, unspecified; F41.9 Anxiety disorder, unspecified; D50.9 Iron deficiency anemia, unspecified; Z79.899 Other long term (current) drug therapy; Z88.6 Allergy status to analgesic agent; Z90.49 Acquired absence of other specified parts of digestive tract; Y92.89 Other specified places as the place of occurrence of the external cause; Z68.24 Body mass index [BMI] 24.0-24.9, adult; Z92.3 Personal history of irradiation; Z92.21 Personal history of antineoplastic chemotherapy; Z03.818 Encounter for observation for suspected exposure to other biological agents ruled out

== ENCOUNTER 2019-12-31 13:37 | Emergency (ER) | payer MEDICARE, BC ==
[~2019-12-31] VITALS: Ht 157.5 cm; Wt 42.6 kg
[~2019-12-31 13:37] MED LIST changes: +CALCIUM500 MG PO; +IRON18 M1 PO; +METHOTREXATE 22.5 M1 PO; +MURO-12815 ML/BOT OPHTHALMIC; +NORCO 5-325 TA1 EAC2 PO; +NYSTATIN100000 UNI SW&SWALLOW; +PREDNISOLONE ACE5 ML LT. EYE; +VITAMIN E1000 UNIT PO
[2019-12-31 13:43] VITALS: BP 130/80
[2019-12-31 14:20] LABS: HEMOGLOBIN 12.1 gm/dL (12.0-15.0); MCH 25.3 pg (26.0-34.0); MCV 79.2 fL (80.0-100.0); MPV 6.4 fl. (7.2-11.1); NUCLEATED RBCS 0 /100WBC; PLATELET COUNT* 260 thou/uL (150-400); RBC 4.79 mil/uL (4.20-5.00); RDW-CV 22.3 % (10.5-14.5); WBC 13.7 thou/uL (4.0-11.0)
[2019-12-31 14:31] LABS: APTT 23.2 Seconds (25.0-31.3); PROTIME 10.6 Seconds (9.20-11.50)
[2019-12-31 14:34] LABS: CALCIUM 8.7 mg/dL (8.5-10.1); CREATININE 0.9 mg/dL (0.6-1.3); POTASSIUM 3.5 mmol/L (3.5-5.1)
[2019-12-31 14:38] LABS: ABSOLUTE LYMPHOCYTES 0.7 thou/uL (0.8-5.3)
[2019-12-31 14:39] LABS: ANISOCYTOSIS 2+; PLATELET ESTIMATE ADEQUATE; POLYCHROMASIA Occasional
[2019-12-31 14:40] LABS: HYPOCHROMASIA Occasional
[2019-12-31 14:49] LABS: ALBUMIN 3.2 g/dL (3.4-5.0); CK-MB MASS 2.5 ng/mL (<0.5-3.6); TOTAL BILIRUBIN 0.4 mg/dL (<0.1-1.0); TOTAL PROTEIN 7.5 g/dL (6.4-8.2)
[2019-12-31 14:52] LABS: URINE BILIRUBIN NEGATIVE (Negative); URINE BLOOD 2+ (Negative); URINE COLOR YELLOW; URINE GLUCOSE-RANDOM NEGATIVE (Negative); URINE KETONES NEGATIVE (Negative); URINE LEUKOCYTES-REFLEX 1+ (Negative); URINE PROTEIN 1+ (Negative); URINE SPECIFIC GRAVITY 1.025 (1.005-1.030); URINE UROBILINOGEN 0.2 E.U./dl (0.2-1.0)
[2019-12-31 14:54] LABS: URINE CLARITY CLOUDY; URINE NITRITE-REFLEX POSITIVE (Negative)
[2019-12-31 15:26] LABS: SQUAMOUS >10 Many /LPF (0-3)
[2019-12-31 15:27] LABS: URINE WBC-REFLEX >25 Many /HPF (0-5); WBC CLUMPS Moderate (None Seen)
[2019-12-31 15:28] LABS: BACTERIA-REFLEX >30 Many /HPF (None Seen); CRYSTALS None Seen /LPF (None Seen); HYALINE CASTS 0-3 Few /LPF (None Seen); MUCUS 0-3 Light strn/LPF (None Seen); URINE RBC 3-10 Few /HPF (0-2)
[2019-12-31 18:20] VITALS: BP 140/68
--- NOTE | 2020-01-01 16:35 | EKG ---
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 : 1945 Requested By: Alfredo Smith Order Number: [id number] MD: Rayshawn Mark Measurements Intervals [place] Rate: 103 P: 61 TN: 158 QRS: -23 QRSD: 77 T: 60 QT: 349 QTc: 457 Interpretive Statements Sinus tachycardia Borderline left axis deviation Abnormal R-wave progression, early transition Borderline T wave abnormalities Compared to ECG 09/28/2019 11:06:28 T-wave abnormality now present Sinus rate has increased Left ventricular hypertrophy no longer present Electronically Signed On 01-01-2020 16:35:12 REVENUE STAMPER by Rayshawn Mark [email or web address] <ELECTRONICALLY SIGNED> By: Rayshawn Mark MD, [facility] 01/01/20 1635 1400 1400 Rayshawn Mark MD, [facility] /EPI
== END 2019-12-31 18:20 | disposition short-term general hospital (02) ==
LOC: M.ERS 13:37 → M.TBA-ER 16:03 → M.ERS 16:03 → M.TBA-ER 01-01 18:25
PROVIDERS: Family Medicine
DX: A41.9 Sepsis, unspecified organism (principal); N39.0 Urinary tract infection, site not specified; N82.3 Fistula of vagina to large intestine; R53.1 Weakness; Z20.828 Contact with and (suspected) exposure to other viral communicable diseases; Z88.5 Allergy status to narcotic agent; Z88.6 Allergy status to analgesic agent; Z88.8 Allergy status to other drugs, medicaments and biological substances; Z85.89 Personal history of malignant neoplasm of other organs and systems